=== PATIENT | female | born 1930 | race Caucasian/White ===

== ENCOUNTER 2016-08-17 14:25 | Emergency (ER) | payer MEDICARE ==
--- NOTE | 2016-08-17 15:33 | CT ---
CT FACIAL BONES: Date: 08/17/16 PROVIDED CLINICAL HISTORY: Facial pain status post injury. FINDINGS: There is subtle linear diminished attenuation involving the right mandibular neck suspicious for a n ondisplaced fracture. No additional potential fracture is identified. The paranasal sinuses appear f ree of significant opacity. The globes and other orbital contents appear normal. The visualized intr acranial contents appear unremarkable. Cervical degenerative changes are seen. IMPRESSION: Findings suspicious for a nondisplaced right mandibular neck fracture. POS: MICHEAL
[2016-08-17] MEDS ORDERED: Naproxen 500 MG TAB ONE (15:53)
[2016-08-17] MEDS ORDERED: Acetaminophen/Codeine 30-300mg Tablet ONE (15:53)
== END 2016-08-17 16:05 | disposition home or self-care (01) ==
LOC: MADERS 14:25
DX: S02.609A Fracture of mandible, unspecified, initial encounter for closed fracture (principal); S01.82XA Laceration with foreign body of other part of head, initial encounter; E11.9 Type 2 diabetes mellitus without complications; E78.5 Hyperlipidemia, unspecified; Z79.82 Long term (current) use of aspirin; Z79.899 Other long term (current) drug therapy; W01.0XXA Fall on same level from slipping, tripping and stumbling without subsequent striking against object, initial encounter; Y93.9 Activity, unspecified
CPT/HCPCS: 70486

== ENCOUNTER 2020-06-14 20:40 | Inpatient (IN) | payer MEDICARE ==
[2020-06-14] MEDS ORDERED: Cyclobenzaprine 10 MG TAB PO PRN (23:10)
[2020-06-15] MEDS: Acetaminophen 500 MG TAB PO SCH ×5 (02:38→17:08)
[2020-06-15] MEDS: Ubidecarenone 50 MG CAP PO SCH (08:18)
[2020-06-15] MEDS: Ferrous Sulfate 325 MG TAB PO SCH ×2 (08:18→17:08)
[2020-06-15] MEDS: Rosuvastatin 10 MG TAB PO SCH (08:19)
[2020-06-15] MEDS: Aspirin 81 mg Enteric Coated Tablet PO SCH (08:19)
[2020-06-15] MEDS: Ascorbic Acid 500 mg Chewable Tablet PO SCH ×2 (08:19→21:18)
[2020-06-15] MEDS: Hydrochlorothiazide 25 MG TAB PO SCH (08:19)
[2020-06-15] MEDS: Lisinopril 5 MG TAB PO SCH (08:20)
[2020-06-16] MEDS: Acetaminophen 500 MG TAB PO SCH ×2 (01:00→06:32)
[2020-06-16 05:28] LABS: #Basophils 0.1 thou/uL (0.0-0.2); #Eosinphils 0.2 thou/uL (0.0-0.7); #Lymphocytes 1.2 thou/uL (1.20-3.40); #Monocytes 0.7 thou/uL (0.11-0.59); #Neutrophils 3.4 thou/uL (1.40-6.50); %Basophils 1.5 % (0.0-1.0); %Eosinophils 2.9 % (0.0-10.0); %Lymphocytes 22.3 % (21.0-51.0); %Monocytes 11.8 % (0.0-10.0); %Neutrophils 61.4 % (42.0-75.0); Hemoglobin 8.9 g/dL (12.0-16.0); Mean Corpuscular HGB CONC 34.1 g/dL (32.0-36.0); Mean Corpuscular Hemoglobin 32.3 pg (27.0-31.0); Mean Corpuscular Volume 94.7 fL (78.0-98.0); Mean Platelet Volume 6.3 fL (7.4-10.4); Platelet Count 147 thou/uL (130-400); Red Blood Cell (RBC) Count 2.75 mill/uL (4.20-5.40); White Blood Cell (WBC) Count 5.5 thou/uL (4.8-10.8)
[2020-06-16 05:44] LABS: ALT (SGPT) 14 U/L (8-55); AST (SGOT) 25 U/L (5-34); Albumin 3.4 g/dL (3.4-4.8); Alkaline Phosphatase 47 U/L (40-110); Anion Gap 12 mmol/L (10-20); BUN (Urea Nitrogen) 17 mg/dL (9.8-20.1); Calc. Creatinine Clearance 48 mL/min (70-130); Calcium 9.8 mg/dL (7.8-10.44); Carbon Dioxide 27 mmol/L (23-31); Chloride 107 mmol/L (98-107); Globulin 2.2 g/dL (2.4-3.5); Glucose 168 mg/dL (83-110); Protein, Total 5.6 g/dL (5.8-8.1); Sodium 142 mmol/L (136-145)
--- NOTE | 2020-06-16 05:48 | HP ---
CHIEF COMPLAINT: Fracture and surgical repair of her left femur leaving her weak and unable to walk. HISTORY OF PRESENT ILLNESS: The patient is an 89-year-old white female, who has a history of coronary artery disease and hypertension. She also has diabetes type 2 that has been diet controlled. She lives at home with her and is independent of all her ADLs. She has a daughter that lives in an adjacent home and also is there to assist with her instrumental ADLs. The patient uses a walker sometimes to assist with her ambulation. On the evening of 06/09, the patient was walking towards her back door and tripped and fell hitting on the left knee. She had immediate pain in that left knee and could not get up. Her and daughter could not get her up. 911 was called and they assisted her to bed. She did not want to go to the emergency room. She did not think she was seriously injured. By the morning of 06/10/2020, she could not move that leg and decided that she probably had broke the leg. 911 was called back and she was hospitalized at [facility] after she was evaluated and found to have a fracture of the distal left femur with the proximal fracture overriding the distal fragment. The patient underwent open reduction and internal fixation on 06/10/2020. The patient underwent a Synthes 4.5 mm variable angle LCP curved condylar distal femoral plate with 16 holes. She did very well postop and she is on no weightbearing on that left leg. She has done very well, but is not able to ambulate and just weak following this fall and fracture. She was transferred to [facility] on the evening of 06/14/2020 for purpose of physical therapy and occupational therapy. She is to do no weightbearing on that left leg and she is to follow up with her orthopedic surgeon, Dr. Lynn, in 2 to 3 weeks. The patient was seen early on the morning of 06/15/2020. She was sitting up in a wheelchair with her left leg elevated. She had a long leg knee immobilizer on and an Fredi wrapping on her left leg. She said she was very comfortable and the Tylenol was controlling her pain. The patient was able to review with me what had happened and also her past history. PAST MEDICAL HISTORY: Hospitalized at [facility] from 06/10 to 06/14/2020 for a fall resulting in a left distal femur fracture requiring open reduction and internal fixation on 06/10/2020. The patient has coronary artery disease and underwent a quadruple coronary artery bypass in 2011. The patient has hypertension, hyperlipidemia. She has had a JJ-BSO. Diabetes type 2, diet controlled. PRESENT MEDICINES: 1. Acetaminophen 500 mg two tablets every 6 hours scheduled. 2. Ascorbic acid 500 mg b.i.d. 3. Aspirin 81 mg daily. 4. Coenzyme Q10 at 200 mg daily. 5. Cyclobenzaprine 5 mg t.i.d. as needed. 6. Ferrous sulfate 325 mg b.i.d. 7. Hydrochlorothiazide 12.5 mg daily. 8. Lisinopril 5 mg daily. 9. Metoprolol succinate 25 mg daily. 10. Rosuvastatin 20 mg daily. ALLERGIES: SULFA DRUGS. REVIEW OF SYSTEMS: GENERAL: The patient said prior to her fall, she had been doing fine. She has not had any recent fever. She has not had any change in her weight. EYES, EARS, NOSE, AND THROAT: No complaints. PULMONARY: No shortness of breath or cough. CARDIOVASCULAR: No chest pain. GASTROINTESTINAL: No nausea or vomiting. She has a good appetite. Has had no change in her bowel habits. GENITOURINARY: No complaints. DERMATOLOGIC: No complaints. NEUROPSYCHIATRIC: No complaints. ADLs: The patient is independent of her ADLs. She is continent of urine and stools. She uses a walker to assist with ambulation prior to her fall and fracture of the left leg. HABITS: Alcohol, none. Tobacco, none. SOCIAL HISTORY: Patient is , lives with her . Her daughter lives in an adjacent home and assists her with her instrumental ADLs. PHYSICAL EXAMINATION: GENERAL: Shows a very pleasant 89-year-old white female, who is alert and oriented x3, was able to give a good history of recent events. She is sitting up in a wheelchair with her left leg propped up and with a long leg immobilizer on. VITAL SIGNS: Shows a temperature of 98.6, pulse 70, respirations 18, O2 saturation 97% on room air, blood pressure 122/67. Her weight is 142. HEENT: Head is normocephalic and atraumatic. Eyes, pupils are equal, round, and reactive. Ears, TMs are clear. Nose normal. Mouth and throat are normal. NECK: Carotids are 2+. There are bilateral bruits that can be heard that are transmitted from a murmur in the chest. There is no thyromegaly. LUNGS: Clear. HEART: Regular rate with a grade 3/6 systolic ejection murmur heard at the base of the heart and radiates towards the neck. ABDOMEN: Soft. No organomegaly. No areas of tenderness. EXTREMITIES: Lower extremities, the left leg is in a long-leg knee immobilizer with an Fredi wrap. There is no edema in the foot, ankle of either foot. NEUROLOGIC: The patient is alert and oriented x3 and very aware of her situation presently and leading up to her fall. She has good overall strength, but weak in that left leg from the recent fracture and surgical repair. DERMATOLOGIC: No rash. IMPRESSION: 1. Weakness and gait abnormality. a. Following a fall with fracture of the distal left femur and repair on 06/10/2020. 2. Closed overriding fracture of the distal femoral shaft of the left leg. a. Secondary to a fall on the evening of 06/09/2020. b. Status post open reduction and internal fixation with LCP curved condylar distal femoral plate by Dr. Conner Lynn. c. No weightbearing on that left leg. 3. Coronary artery disease. a. Status post coronary artery bypass x4 in 2011. b. Asymptomatic. 4. Hypertension. 5. Hyperlipidemia. 6. Thrombocytopenia. Platelet count on 06/13 was 96,000 with an H and H of 9.4 and 24.8, and white cell count 6800. 7. Diabetes mellitus that is diet controlled. PLAN: While patient was hospitalized at [facility], she had a SARS-CoV-2, rapid RNA, but none was detected on 06/10/2020. The patient will be placed on her usual medications. We will follow her CBC so that her blood count and platelets can be observed. The patient will have evaluation by PT and OT. She will be nonweightbearing on that left leg. The Tylenol seems to be handling her pain just fine. She is due to see Dr. Lynn in followup in 2 to 3 weeks. CODE STATUS: Full. Job ID: [id number] [facility]
[2020-06-16] MEDS: Ascorbic Acid 500 mg Chewable Tablet PO SCH ×2 (08:46→20:45)
[2020-06-16] MEDS: Aspirin 81 mg Enteric Coated Tablet PO SCH (08:47)
[2020-06-16] MEDS: Hydrochlorothiazide 25 MG TAB PO SCH (08:47)
[2020-06-16] MEDS: Ferrous Sulfate 325 MG TAB PO SCH ×2 (08:47→16:04)
[2020-06-16] MEDS: Lisinopril 5 MG TAB PO SCH (08:48)
[2020-06-16] MEDS: Rosuvastatin 10 MG TAB PO SCH (08:53)
[2020-06-16] MEDS: Ubidecarenone 50 MG CAP PO SCH (08:53)
[2020-06-16 11:23] LABS: Hemoglobin A1c 6.1 % (4.0-6.0)
--- NOTE | 2020-06-16 14:25 | PRG ---
DATE OF SERVICE: 06/16/2020 SUBJECTIVE: The patient said she had a good night. Her pain is well controlled. She does not think she needs Tylenol scheduled. She said she would just ask for it when needed. OBJECTIVE: GENERAL: The patient is sitting up in a wheelchair with her left leg elevated. She looks very comfortable, in no distress. VITAL SIGNS: Her temp is 98.6, pulse 68, respirations 16, O2 saturation 99% on room air, blood pressure 119/62. LUNGS: Clear. HEART: Regular rate with a grade 3/6 systolic ejection murmur heard best at the base of the heart extending to the neck. EXTREMITIES: The left leg is in a long-leg knee immobilizer, and there is a dressing on the leg. There is no edema. ASSESSMENT: 1. Weakness and gait abnormality. a. Following a fall with fracture of the distal left femur and repair on 06/10/2020. b. Doing very well. Pain well controlled. 2. Closed overriding fracture of the distal femoral shaft, left leg. a. Secondary to mechanical fall on the evening of 06/09/2020. b. Status post open reduction and internal fixation with an LCP curved condylar distal femoral plate by Conner Lynn MD, on 06/09/2020. c. No weightbearing on that leg. 3. Coronary artery disease. a. Status post coronary artery bypass x4, 2011. b. Asymptomatic. 4. Hypertension. 5. Hyperlipidemia. 6. Thrombocytopenia. Platelet count on 06/13 was 96,000, H and H 9.4 and 24.9, white cell count 6800. 7. Diabetes type 2 that is diet controlled. PLAN: The patient is doing very well. PT and OT will continue working with her. She will see her orthopedic surgeon in followup in 2 to 3 weeks. Her lab this morning showed an H and H of 8.9 and 26.1 with a platelet count of up to 147,000. Her sodium is 142, potassium 4.0, FBS 168. Hemoglobin A1c pending. Job ID: [id number] MTDD
[2020-06-16] MEDS: Acetaminophen 500 MG TAB PO PRN ×2 (16:03→22:53)
[2020-06-16] MEDS: Polyethylene Glycol 3350 17 GM Packet PO PRN (16:04)
[2020-06-17] MEDS: Ferrous Sulfate 325 MG TAB PO SCH ×2 (08:54→17:13)
[2020-06-17] MEDS: Rosuvastatin 10 MG TAB PO SCH (08:54)
[2020-06-17] MEDS: Lisinopril 5 MG TAB PO SCH (08:54)
[2020-06-17] MEDS: Ascorbic Acid 500 mg Chewable Tablet PO SCH ×2 (08:54→20:30)
[2020-06-17] MEDS: Aspirin 81 mg Enteric Coated Tablet PO SCH (08:56)
[2020-06-17] MEDS: Hydrochlorothiazide 25 MG TAB PO SCH (08:56)
[2020-06-17] MEDS: Ubidecarenone 50 MG CAP PO SCH (08:57)
[2020-06-17] MEDS: Polyethylene Glycol 3350 17 GM Packet PO PRN (09:02)
[2020-06-17] MEDS: Acetaminophen 500 MG TAB PO PRN (20:33)
[2020-06-17] MEDS: Calcium Carbonate 500 MG ChewTAB PO PRN (20:34)
--- NOTE | 2020-06-18 04:38 | PRG ---
DATE OF SERVICE: 06/17/2020 SUBJECTIVE: The patient says she is feeling real good. She is up in her room, sitting in a wheelchair with her left leg elevated. She is visiting with her daughter, Mell. The patient said her pain is well controlled and she is not having any trouble. OBJECTIVE: GENERAL: The patient is alert, appears comfortable, in no distress. VITAL SIGNS: Show a temperature of 97.7, pulse 76, respirations 16, O2 saturation 97% on room air, and blood pressure 122/67. LUNGS: Clear. HEART: Regular rate. EXTREMITIES: The patient is wearing a long leg knee immobilizer on the left leg. There is no edema in the lower leg or feet. LABORATORY DATA: FBS this morning was 164. Hemoglobin A1c 6.1. ASSESSMENT: 1. Weakness and gait abnormality: a. Following a fall with fracture of the distal left femur and repair on 06/10/2020. b. Doing very well, pain well controlled as of 06/17/2020. 2. Closed overriding fracture of the distal femoral shaft of the left leg: a. Secondary to mechanical fall on the evening of 06/09/2020. b. Status post open reduction and internal fixation with an LCP curved condylar distal femoral plate by Dr. Toan Lynn on 06/09/2020. c. No weightbearing on the left leg. 3. Coronary artery disease: a. Status post coronary artery bypass x4 in 2011. b. Asymptomatic. 4. Hypertension, controlled. 5. Hyperlipidemia. 6. Thrombocytopenia: a. Resolving, platelet count up to 147,000. 7. Diabetes, type 2: a. Well controlled with hemoglobin A1c of 6.1. b. Controlled with diet alone. PLAN: The patient is doing very well. We will continue her present care. Continue PT and OT. Job ID: [id number]
[2020-06-18] MEDS: Ubidecarenone 50 MG CAP PO SCH (08:20)
[2020-06-18] MEDS: Ferrous Sulfate 325 MG TAB PO SCH ×2 (08:20→17:09)
[2020-06-18] MEDS: Aspirin 81 mg Enteric Coated Tablet PO SCH (08:21)
[2020-06-18] MEDS: Ascorbic Acid 500 mg Chewable Tablet PO SCH ×2 (08:21→20:22)
[2020-06-18] MEDS: Hydrochlorothiazide 25 MG TAB PO SCH (08:21)
[2020-06-18] MEDS: Lisinopril 5 MG TAB PO SCH (08:21)
[2020-06-18] MEDS: Rosuvastatin 10 MG TAB PO SCH (08:26)
[2020-06-18] MEDS: Acetaminophen 500 MG TAB PO PRN (20:55)
[2020-06-19] MEDS: Ascorbic Acid 500 mg Chewable Tablet PO SCH ×2 (07:59→21:05)
[2020-06-19] MEDS: Lisinopril 5 MG TAB PO SCH (07:59)
[2020-06-19] MEDS: Rosuvastatin 10 MG TAB PO SCH (07:59)
[2020-06-19] MEDS: Ferrous Sulfate 325 MG TAB PO SCH ×2 (07:59→16:44)
[2020-06-19] MEDS: Ubidecarenone 50 MG CAP PO SCH (07:59)
[2020-06-19] MEDS: Aspirin 81 mg Enteric Coated Tablet PO SCH (08:00)
[2020-06-19] MEDS: Hydrochlorothiazide 25 MG TAB PO SCH (08:00)
--- NOTE | 2020-06-19 12:41 | PRG ---
DATE OF SERVICE: 06/19/2020 SUBJECTIVE: The patient said she is feeling good this morning. Her leg is feeling good. She did not have any complaints. OBJECTIVE: GENERAL: The patient is sitting up in a chair, eating her breakfast. She is alert, appears very comfortable. VITAL SIGNS: Temp 98.9, pulse 77, respirations 19, O2 saturation 97% on room air, and blood pressure 104/57. LUNGS: Clear. HEART: Regular rate. EXTREMITIES: No edema. LABORATORY DATA: Her FBS this morning was 191. Blood sugars have been running each morning around 160s. ASSESSMENT: 1. Weakness and gait abnormality. a. Following a fall with fracture of the distal left femur and repair on 06/10/2020. b. Doing very well. Pain well controlled as of 06/19. 2. Closed overriding fracture of the distal femoral shaft of the left leg. a. Secondary to mechanical fall on the evening of 06/09/2020. b. Status post open reduction and internal fixation with LCP curved condylar distal femoral plate by Dr. Lynn on 06/09/2020. c. No weightbearing on the left leg. d. Doing very well as of 06/19. 3. Coronary artery disease. a. Status post coronary artery bypass x4 in 2011. b. Asymptomatic. 4. Hypertension, controlled. 5. Hyperlipidemia. 6. Thrombocytopenia, resolving. Recent platelet count 147,000. 7. Diabetes, type 2. a. Hemoglobin A1c 6.1. b. Fasting blood sugars running 160 to 190. PLAN: Continue present care. Continue PT. We will place the patient on metformin 500 mg daily at supper. Job ID: [id number]
[2020-06-19] MEDS: metFORMIN 500 MG TAB PO SCH (16:45)
[2020-06-19] MEDS: Acetaminophen 500 MG TAB PO PRN (21:04)
[2020-06-20] MEDS: Hydrochlorothiazide 25 MG TAB PO SCH (08:35)
[2020-06-20] MEDS: Ferrous Sulfate 325 MG TAB PO SCH ×2 (08:35→17:19)
[2020-06-20] MEDS: Rosuvastatin 10 MG TAB PO SCH (08:35)
[2020-06-20] MEDS: Ubidecarenone 50 MG CAP PO SCH (08:35)
[2020-06-20] MEDS: Lisinopril 5 MG TAB PO SCH (08:35)
[2020-06-20] MEDS: Ascorbic Acid 500 mg Chewable Tablet PO SCH ×2 (08:35→20:42)
[2020-06-20] MEDS: Aspirin 81 mg Enteric Coated Tablet PO SCH (08:35)
[2020-06-20] MEDS: Acetaminophen 500 MG TAB PO PRN (15:54)
[2020-06-20] MEDS: metFORMIN 500 MG TAB PO SCH (17:19)
[2020-06-21] MEDS: Acetaminophen 500 MG TAB PO PRN ×3 (03:59→17:25)
--- NOTE | 2020-06-21 04:54 | PRG ---
DATE OF SERVICE: 06/20/2020 SUBJECTIVE: The patient is sitting up in a wheelchair in the room with the left leg elevated and wearing her long-leg knee immobilizer. She looks very comfortable. She is talkative and said she had had a good day. She is working with Physical Therapy and learning to help transfer and pivoting on her good right leg. OBJECTIVE: GENERAL: The patient is alert, appears comfortable, in no distress. VITAL SIGNS: Her temperature 98, pulse 70, respirations 18, O2 saturation 99% on room air, and blood pressure 114/65. Her FBS this morning was 166. LUNGS: Clear. HEART: Regular rate. EXTREMITIES: Lower extremities, there is no swelling around the ankles or the feet. Left leg is in the long-leg knee immobilizer. ASSESSMENT: 1. Weakness and gait abnormality. a. Following a fall and fracture of the distal left femur and repair on 06/10/2020. b. Doing very well. Pain well controlled as of 06/20. 2. Closed overriding fracture of the distal femoral shaft of the left leg. a. Secondary to mechanical fall on the evening of 06/09/2020. b. Status post open reduction and internal fixation with an LCP curved condylar distal femoral plate by Dr. Lynn on 06/10/2020. c. No weightbearing on the left leg. d. Doing well as of 06/20. 3. Coronary artery disease. a. Status post coronary artery bypass x4 in 2011. b. Asymptomatic. 4. Hypertension, controlled. 5. Hyperlipidemia. 6. Thrombocytopenia, resolved. 7. Diabetes type 2. a. Hemoglobin A1c 6.1. b. FBS running a little high. She was started on metformin on 06/19/2020. PLAN: Continue present care. Continue PT and OT. Job ID: [id number]
[2020-06-21] MEDS: Ubidecarenone 50 MG CAP PO SCH (08:18)
[2020-06-21] MEDS: Hydrochlorothiazide 25 MG TAB PO SCH (08:19)
[2020-06-21] MEDS: Lisinopril 5 MG TAB PO SCH (08:20)
[2020-06-21] MEDS: Ferrous Sulfate 325 MG TAB PO SCH ×2 (08:20→17:25)
[2020-06-21] MEDS: Rosuvastatin 10 MG TAB PO SCH (08:20)
[2020-06-21] MEDS: Ascorbic Acid 500 mg Chewable Tablet PO SCH ×2 (08:20→20:12)
[2020-06-21] MEDS: Aspirin 81 mg Enteric Coated Tablet PO SCH (08:20)
[2020-06-21] MEDS: metFORMIN 500 MG TAB PO SCH (17:25)
--- NOTE | 2020-06-22 05:18 | PRG ---
DATE OF SERVICE: 06/21/2020 SUBJECTIVE: Patient thinks she is doing good. She had no complaint. She said she is working with Physical Therapy, learning how to walk without weightbearing on the left. Said she is due to see her orthopedic surgeon tomorrow. OBJECTIVE: GENERAL: The patient is sitting in a wheelchair. She is alert, talkative, and appears very comfortable, in no distress. VITAL SINGS: Temperature 98.9, pulse rate 74, respirations are 18, O2 saturation 97% on room air, and blood pressure 114/63. LUNGS: Clear. HEART: Regular rate. EXTREMITIES: No edema. LABORATORY DATA: FBS this morning, pending. ASSESSMENT: 1. Weakness and gait abnormality. a. Following a fall and fracture of the distal left femur and repair on 06/10/2020. b. Doing very well. Pain well controlled as of 06/21/2020. 2. Closed overriding fracture of the distal femoral shaft of the left leg. a. Secondary to a mechanical fall the evening of 06/09/2020. b. Status post ORIF with LCP curved condylar distal femoral plate by Dr. Lynn on 06/10/2020. c. No weightbearing on the left leg. d. Doing very well as of 06/21/2020. 3. Coronary artery disease. a. Status post coronary artery bypass x4 in 2011. b. Asymptomatic. 4. Hypertension, controlled. 5. Hyperlipidemia. 6. Thrombocytopenia, resolved. 7. Diabetes type 2. a. Hemoglobin A1c 6.1. PLAN: Continue present care. Continue PT and OT. The patient is scheduled to see her orthopedic surgeon tomorrow. Job ID: [id number]
[2020-06-22] MEDS: Ferrous Sulfate 325 MG TAB PO SCH ×2 (07:40→17:06)
[2020-06-22] MEDS: Aspirin 81 mg Enteric Coated Tablet PO SCH (07:42)
[2020-06-22] MEDS: Ubidecarenone 50 MG CAP PO SCH (07:42)
[2020-06-22] MEDS: Rosuvastatin 10 MG TAB PO SCH (07:42)
[2020-06-22] MEDS: Ascorbic Acid 500 mg Chewable Tablet PO SCH ×2 (07:43→20:29)
[2020-06-22] MEDS: Lisinopril 5 MG TAB PO SCH (07:43)
[2020-06-22] MEDS: Hydrochlorothiazide 25 MG TAB PO SCH (07:43)
[2020-06-22] MEDS: Acetaminophen 500 MG TAB PO PRN ×2 (07:43→20:29)
[2020-06-22] MEDS: metFORMIN 500 MG TAB PO SCH (17:06)
--- NOTE | 2020-06-23 05:08 | PRG ---
DATE OF SERVICE: 06/22/2020 SUBJECTIVE: The patient thinks she is doing well. She is doing well with physical therapy. She is due to see her orthopedic surgeon today, Dr. Lynn. She says she in the afternoon notices a little pain over her right cheek. She takes Tylenol, it goes away. She has had a little intermittent clear nasal drainage, but there has been no discoloration. No fever. OBJECTIVE: GENERAL: The patient is alert, appears in no distress. VITAL SIGNS: Her temperature is 98.6, pulse 82, respirations 16, O2 saturation 98% on room air, and blood pressure 102/51. HEENT: Face; there is no nasal congestion. There is no significant pain over the right maxillary sinus. LUNGS: Clear. HEART: Regular rate. EXTREMITIES: Lower extremities, no edema. ASSESSMENT: 1. Weakness and gait abnormality. a. Following a fall and fracture of the distal left femur and requiring repair on 06/10/2020. b. Doing very well. Pain well controlled as of 06/22/2020. 2. Closed overriding fracture of the distal femoral shaft of the left leg. a. Secondary to a mechanical fall on 06/09/2020. b. Status post open reduction and internal fixation by Dr. Lynn on 06/10/2020. c. No weightbearing on the left leg. d. Doing very well as of 06/22. 3. Coronary artery bypass. a. Status post coronary artery bypass x4 in 2011. b. Asymptomatic. 4. Hypertension, controlled. 5. Hyperlipidemia. 6. Thrombocytopenia, resolved. 7. Diabetes, type 2. a. Hemoglobin A1c 6.1. PLAN: Continue present care. Continue PT and OT. The patient is scheduled to see Dr. Lynn, orthopedic surgeon today. Right now, this intermittent pain in the right cheek area is managed with Tylenol. We will just observe this and see how she does. Job ID: [id number]
[2020-06-23 06:06] LABS: #Basophils 0.1 thou/uL (0.0-0.2); #Eosinphils 0.1 thou/uL (0.0-0.7); #Lymphocytes 1.2 thou/uL (1.20-3.40); #Monocytes 0.6 thou/uL (0.11-0.59); #Neutrophils 3.9 thou/uL (1.40-6.50); %Basophils 1.2 % (0.0-1.0); %Eosinophils 2.1 % (0.0-10.0); %Lymphocytes 19.8 % (21.0-51.0); %Neutrophils 66.9 % (42.0-75.0); Anion Gap 13 mmol/L (10-20); BUN (Urea Nitrogen) 18 mg/dL (9.8-20.1); Calc. Creatinine Clearance 52 mL/min (70-130); Calcium 9.7 mg/dL (7.8-10.44); Carbon Dioxide 26 mmol/L (23-31); Chloride 105 mmol/L (98-107); Glucose 152 mg/dL (83-110); Hemoglobin 9.5 g/dL (12.0-16.0); Mean Corpuscular HGB CONC 33.5 g/dL (32.0-36.0); Mean Corpuscular Hemoglobin 32.3 pg (27.0-31.0); Mean Corpuscular Volume 96.4 fL (78.0-98.0); Mean Platelet Volume 5.9 fL (7.4-10.4); Platelet Count 244 thou/uL (130-400); Potassium 3.9 mmol/L (3.5-5.1); RBC Distribution Width 12.9 % (11.5-14.5); Red Blood Cell (RBC) Count 2.94 mill/uL (4.20-5.40); Sodium 140 mmol/L (136-145); White Blood Cell (WBC) Count 5.9 thou/uL (4.8-10.8)
[2020-06-23] MEDS: Ferrous Sulfate 325 MG TAB PO SCH ×2 (08:03→17:38)
[2020-06-23] MEDS: Aspirin 81 mg Enteric Coated Tablet PO SCH (08:03)
[2020-06-23] MEDS: Rosuvastatin 10 MG TAB PO SCH (08:03)
[2020-06-23] MEDS: Hydrochlorothiazide 25 MG TAB PO SCH (08:03)
[2020-06-23] MEDS: Ascorbic Acid 500 mg Chewable Tablet PO SCH ×2 (08:03→20:33)
[2020-06-23] MEDS: Lisinopril 5 MG TAB PO SCH (08:03)
[2020-06-23] MEDS: Ubidecarenone 50 MG CAP PO SCH (08:04)
[2020-06-23] MEDS: Acetaminophen 500 MG TAB PO PRN ×2 (14:20→20:32)
[2020-06-23] MEDS: metFORMIN 500 MG TAB PO SCH (17:38)
--- NOTE | 2020-06-24 07:52 | PRG ---
DATE OF SERVICE: 06/23/2020 SUBJECTIVE: The patient is sitting up in a wheelchair with her left leg elevated with her daughter visiting. The patient said she is feeling good this morning. The little intermittent pain over the right facial area is better. The patient went to see the orthopedic surgeon yesterday and saw Dr. Cabrera, an associate of Dr. Lynn. He was pleased with her progress, removed the skin logan and said that she may take the long leg knee immobilizer off at nighttime when she is in bed, but it needs to stay on when she is up out of bed. She still needs to stay at nonweightbearing on the left leg at least for 6 weeks postop. OBJECTIVE: GENERAL: The patient looks very comfortable, in no distress. VITAL SIGNS: Her temperature is 98.5, pulse 69, respirations 16, O2 saturation 99%, blood pressure 116/66. LUNGS: Clear. HEART: Regular rate. EXTREMITIES: No edema. LABORATORY DATA: Her H and H are up to 9.5 and 28.3, white cell count 5900 with 67% segs, 20% lymphocytes, and platelet count of 244,000. Sodium 140, potassium 3.9, BUN 18, creatinine 0.76, glucose 152. ASSESSMENT: 1. Weakness and gait abnormality. a. Following a fall and fracture of the distal left femur requiring open reduction and internal fixation on 06/10/2020. b. Doing well. Pain well controlled as of 06/23. 2. Closed overriding fracture of the distal left femoral shaft. a. Secondary to a mechanical fall on 06/09/2020. b. Status post open reduction and internal fixation by Dr. Lynn on 06/10/2020. c. Remains no weightbearing on the left leg for first six weeks postop. d. Doing very well as of 06/23. [place] removed by her orthopedic surgeon on 06/22. 3. Coronary artery disease. a. Status post coronary artery bypass x4 in 2011. b. Asymptomatic. 4. Hypertension. 5. Hyperlipidemia. 6. Thrombocytopenia, resolved. Platelet count 244,000 as of 06/23/2020. 7. Diabetes type 2. a. Hemoglobin A1c 6.1. PLAN: Continue present care. Continue PT and OT. Continue nonweightbearing on the left leg. Job ID: [id number]
[2020-06-24] MEDS: Hydrochlorothiazide 25 MG TAB PO SCH (08:39)
[2020-06-24] MEDS: Ubidecarenone 50 MG CAP PO SCH (08:39)
[2020-06-24] MEDS: Rosuvastatin 10 MG TAB PO SCH (08:39)
[2020-06-24] MEDS: Aspirin 81 mg Enteric Coated Tablet PO SCH (08:40)
[2020-06-24] MEDS: Lisinopril 5 MG TAB PO SCH (08:40)
[2020-06-24] MEDS: Ferrous Sulfate 325 MG TAB PO SCH ×2 (08:40→16:57)
[2020-06-24] MEDS: Ascorbic Acid 500 mg Chewable Tablet PO SCH ×2 (08:40→20:15)
[2020-06-24] MEDS: Acetaminophen 500 MG TAB PO PRN ×2 (13:18→20:16)
[2020-06-24] MEDS: metFORMIN 500 MG TAB PO SCH (16:57)
[2020-06-25] MEDS: Ubidecarenone 50 MG CAP PO SCH (08:10)
[2020-06-25] MEDS: Ferrous Sulfate 325 MG TAB PO SCH ×2 (08:10→17:41)
[2020-06-25] MEDS: Ascorbic Acid 500 mg Chewable Tablet PO SCH ×2 (08:10→20:02)
[2020-06-25] MEDS: Hydrochlorothiazide 25 MG TAB PO SCH (08:11)
[2020-06-25] MEDS: Aspirin 81 mg Enteric Coated Tablet PO SCH (08:11)
[2020-06-25] MEDS: Lisinopril 5 MG TAB PO SCH (08:11)
[2020-06-25] MEDS: Rosuvastatin 10 MG TAB PO SCH (08:12)
[2020-06-25] MEDS: Acetaminophen 500 MG TAB PO PRN ×3 (13:22→20:04)
[2020-06-25] MEDS: metFORMIN 500 MG TAB PO SCH (17:41)
--- NOTE | 2020-06-25 17:45 | PRG ---
DATE OF SERVICE: 06/25/2020 SUBJECTIVE: The patient says she is doing good. She said it felt good when she is in bed at night to leave the immobilizer off as instructed by her orthopedic surgeon that she could do, has to be worn when she is up. She still is at no weightbearing on the left leg for at least 6 weeks postop. OBJECTIVE: GENERAL: The patient is alert and talkative, appears comfortable, in no distress. VITAL SIGNS: Her temp is 98.7, pulse 68, respirations 18, O2 saturation 96% on room air, blood pressure 101/59. LUNGS: Clear. HEART: Regular rate. EXTREMITIES: No edema. ASSESSMENT: 1. Weakness and gait abnormality. a. Following a fall and fracture of the distal left femur, requiring open reduction and internal fixation on 05/31/2020. b. Doing well. Pain well controlled as of 06/25. 2. Closed overriding fracture of the distal left femoral shaft. a. Secondary to a mechanical fall on 06/09/2020. b. Status post open reduction and internal fixation by Dr. Lynn on 06/10/2020. c. Remains no weightbearing on the left leg for at least 6 weeks postop. Allowed to remain out of the immobilizer when in bed at night. d. Doing very well as of 06/25. [place] were removed by orthopedic surgeon on 06/22. 3. Coronary artery disease. a. Status post coronary artery bypass x4 in 2011. b. Asymptomatic. 4. Hypertension. 5. Hyperlipidemia. 6. Thrombocytopenia, resolved, Platelet count 244,000 on 06/23/2020. 7. Diabetes, type 2. a. Hemoglobin A1c 6.1. FBS 146. PLAN: Continue present care. Continue PT and OT. Job ID: [id number]
[2020-06-25] MEDS: Calcium Carbonate 500 MG ChewTAB PO PRN (22:27)
[2020-06-26] MEDS: Rosuvastatin 10 MG TAB PO SCH (08:38)
[2020-06-26] MEDS: Ferrous Sulfate 325 MG TAB PO SCH ×2 (08:38→17:09)
[2020-06-26] MEDS: Aspirin 81 mg Enteric Coated Tablet PO SCH (08:38)
[2020-06-26] MEDS: Lisinopril 5 MG TAB PO SCH (08:38)
[2020-06-26] MEDS: Ascorbic Acid 500 mg Chewable Tablet PO SCH ×2 (08:38→20:24)
[2020-06-26] MEDS: Ubidecarenone 50 MG CAP PO SCH (08:38)
[2020-06-26] MEDS: Hydrochlorothiazide 25 MG TAB PO SCH (08:38)
[2020-06-26] MEDS: Acetaminophen 500 MG TAB PO PRN ×3 (08:56→20:24)
--- NOTE | 2020-06-26 10:14 | PRG ---
DATE OF SERVICE: 06/26/2020 SUBJECTIVE: The patient thinks she is doing pretty good. She said she had a good night. Her leg feels pretty good. She is around in Physical Therapy Department, sitting in a wheelchair. OBJECTIVE: GENERAL: The patient is alert, appears in no distress. VITAL SIGNS: Her temperature is 98, pulse 73, respirations 16, O2 saturation 99% on room air, blood pressure 145/64. LUNGS: Clear. HEART: Regular rate with grade 3/6 systolic ejection murmur heard at the base of the heart, radiates towards the neck. EXTREMITIES: There is no edema of the left leg. There is incision on the lateral distant half of the upper leg that is well healed. There is smaller incision more proximally. There is bruising around the knee and lower leg. LABORATORY DATA: Shows an H and H of 9.5 and 28.3 on 06/23. FBS this morning 144. ASSESSMENT: 1. Weakness and gait abnormality. a. Following a fall and fracture of the distal left femur, requiring open reduction and internal fixation on 06/10/2020. b. Doing well. Pain well controlled. No weightbearing on the left leg. 2. Closed overriding fracture of the distal left femoral shaft. a. Secondary to mechanical fall on 06/09/2020. b. Status post open reduction and internal fixation by Dr. Lynn on 06/10/2020. c. Remains no weightbearing on the left leg for six weeks minimum postop. 3. Coronary artery disease. a. Status post coronary artery bypass x4 in 2011. b. Asymptomatic. 4. Hypertension. 5. Thrombocytopenia, resolved. Platelet count 244,000 on 06/23/2020. 6. Diabetes type 2. a. Hemoglobin A1c 6.1. FBS 144 on 06/26/2020. PLAN: The patient has gradual improvement. We will continue present care. Continue PT and OT. Job ID: [id number]
[2020-06-26] MEDS: metFORMIN 500 MG TAB PO SCH (17:09)
[2020-06-26] MEDS: Calcium Carbonate 500 MG ChewTAB PO PRN (20:27)
[2020-06-27] MEDS: Ascorbic Acid 500 mg Chewable Tablet PO SCH ×2 (08:10→20:23)
[2020-06-27] MEDS: Rosuvastatin 10 MG TAB PO SCH (08:10)
[2020-06-27] MEDS: Aspirin 81 mg Enteric Coated Tablet PO SCH (08:10)
[2020-06-27] MEDS: Ferrous Sulfate 325 MG TAB PO SCH ×2 (08:10→16:57)
[2020-06-27] MEDS: Fluticasone Propionate Nasal Spray 16 gm Bottle NASAL SCH (08:10)
[2020-06-27] MEDS: Lisinopril 5 MG TAB PO SCH (08:11)
[2020-06-27] MEDS: Ubidecarenone 50 MG CAP PO SCH (08:11)
[2020-06-27] MEDS: Hydrochlorothiazide 25 MG TAB PO SCH (08:11)
[2020-06-27] MEDS: Acetaminophen 500 MG TAB PO PRN ×2 (08:15→20:26)
[2020-06-27] MEDS: AMOXicillin 250 MG CAP PO SCH ×3 (08:30→20:23)
--- NOTE | 2020-06-27 09:20 | PRG ---
DATE OF SERVICE: 06/27/2020 SUBJECTIVE: The patient says she feels a lot better today. Yesterday, she had a lot of pain in that right facial area. At home, she uses Flonase and this was restarted and she used this morning, she blew a lot of thick yellowish mucoid drainage from the right nostril. OBJECTIVE: GENERAL: The patient is alert, appears in no distress. VITAL SIGNS: Shows temperature of 98.1, pulse 70, respirations 16, O2 saturation 98% on room air, blood pressure 115/61. FACE: The patient is tender to palpation over the right maxillary sinus. LUNGS: Clear. HEART: Regular rate. EXTREMITIES: No edema. LABORATORY: Her FBS this morning was 164. ASSESSMENT: 1. Weakness and gait abnormality. a. Following a fall and fracture of the distal left femur requiring ORIF on 06/10/2020. b. Doing well. Pain well controlled. Still remains no weightbearing on the left leg. 2. Closed overriding fracture of the distal left femoral shaft. a. Secondary to mechanical fall on 06/09/2020. b. Status post ORIF by Dr. Lynn on 06/10/2020. c. She remains at no weightbearing for a minimum of 6 weeks postop. 3. Coronary artery disease. a. Status post coronary artery bypass x4 in 2011. b. Asymptomatic. 4. Hypertension. 5. Thrombocytopenia, resolved. Platelet count 244,000, on 06/23/2020. 6. Diabetes type 2. a. Hemoglobin A1c 6.1. 7. Right maxillary sinusitis. PLAN: Continue present care. Continue PT and OT. Continue the Flonase. Amoxicillin 500 mg t.i.d. x10 days. Job ID: [id number]
[2020-06-27] MEDS: metFORMIN 500 MG TAB PO SCH (16:57)
[2020-06-28] MEDS: Ubidecarenone 50 MG CAP PO SCH (08:21)
[2020-06-28] MEDS: Rosuvastatin 10 MG TAB PO SCH (08:21)
[2020-06-28] MEDS: Acetaminophen 500 MG TAB PO PRN ×3 (08:21→21:04)
[2020-06-28] MEDS: Lisinopril 5 MG TAB PO SCH (08:22)
[2020-06-28] MEDS: Ascorbic Acid 500 mg Chewable Tablet PO SCH ×2 (08:22→20:04)
[2020-06-28] MEDS: Fluticasone Propionate Nasal Spray 16 gm Bottle NASAL SCH (08:24)
[2020-06-28] MEDS: Aspirin 81 mg Enteric Coated Tablet PO SCH (08:24)
[2020-06-28] MEDS: Ferrous Sulfate 325 MG TAB PO SCH ×2 (08:24→17:06)
[2020-06-28] MEDS: Hydrochlorothiazide 25 MG TAB PO SCH (08:24)
[2020-06-28] MEDS: AMOXicillin 250 MG CAP PO SCH ×3 (08:24→20:03)
--- NOTE | 2020-06-28 09:54 | PRG ---
DATE OF SERVICE: 06/28/2020 SUBJECTIVE: The patient says she feels a lot better today. She is not having any more of that right facial pain over the cheek. She is not blowing the thick yellow mucus out of her nose. Her leg, she thinks is doing better, and therapy is going well. OBJECTIVE: GENERAL: The patient is sitting up in a chair, is alert and talkative, appears very comfortable, and in no distress. VITAL SIGNS: Her temperature is 98.2, pulse 65, respirations 16, O2 saturation 100% on room air, blood pressure 122/65. LUNGS: Clear. HEART: Regular rate. EXTREMITIES: No edema. ASSESSMENT: 1. Weakness and gait abnormality. a. Following a fall and fracture of the distal left femur, requiring open reduction and internal fixation on 06/10/2020. b. Doing well. Pain well controlled. She remains on no weightbearing on the left leg. 2. Closed, overriding fracture of the distal left femoral shaft. a. Secondary to mechanical fall on 06/09/2020. b. Status post open reduction and internal fixation by Dr. Lynn on 06/10/2020. c. Remains at no weightbearing on the left leg for minimum of 6 weeks postop. 3. Coronary artery disease. a. Status post coronary artery bypass x4 in 2011. b. Asymptomatic. 4. Hypertension. 5. Thrombocytopenia, resolved, platelet count 244,000 on 06/23/2020. 6. Diabetes type 2. a. Hemoglobin A1c 6.1. b. FBS was 164 as of 06/28/2020. 7. Right maxillary sinusitis. a. Marked improvement as of 06/28/2020. PLAN: Continue present care. Continue PT and OT. Job ID: [id number]
[2020-06-28] MEDS: metFORMIN 500 MG TAB PO SCH (17:06)
[2020-06-28] MEDS: Calcium Carbonate 500 MG ChewTAB PO PRN (20:04)
[2020-06-29] MEDS: Aspirin 81 mg Enteric Coated Tablet PO SCH (08:04)
[2020-06-29] MEDS: Rosuvastatin 10 MG TAB PO SCH (08:04)
[2020-06-29] MEDS: Lisinopril 5 MG TAB PO SCH (08:05)
[2020-06-29] MEDS: Hydrochlorothiazide 25 MG TAB PO SCH (08:05)
[2020-06-29] MEDS: Acetaminophen 500 MG TAB PO PRN ×3 (08:06→21:31)
[2020-06-29] MEDS: Ubidecarenone 50 MG CAP PO SCH (08:06)
[2020-06-29] MEDS: AMOXicillin 250 MG CAP PO SCH ×3 (08:06→20:38)
[2020-06-29] MEDS: Ascorbic Acid 500 mg Chewable Tablet PO SCH ×2 (08:06→20:37)
[2020-06-29] MEDS: Ferrous Sulfate 325 MG TAB PO SCH ×2 (08:07→16:51)
[2020-06-29] MEDS: Fluticasone Propionate Nasal Spray 16 gm Bottle NASAL SCH (08:09)
--- NOTE | 2020-06-29 10:07 | PRG ---
DATE OF SERVICE: 06/29/2020 SUBJECTIVE: The patient said that she is doing good today. Her right face feels better, still has just a little soreness there, but nothing like it had been. She thinks this is much improved. OBJECTIVE: GENERAL: The patient is alert, appears in no distress. VITAL SIGNS: Her temperature 98.9, pulse 73, respirations 17, O2 saturation 97% on room air, and blood pressure 100/52. LUNGS: Clear. HEART: Regular rate. EXTREMITIES: No edema. ASSESSMENT: 1. Weakness, gait abnormality. a. Following a fall and fracture of the distal left femur and open reduction and internal fixation on 06/10/2020. b. Doing better. Pain controlled. Remains on no weightbearing on the left. 2. Closed, overriding fracture of the distal left femoral shaft. a. Secondary to mechanical fall on 06/09/2020. b. Status post open reduction and internal fixation by Dr. Lynn on 06/10/2020. c. Remains at no weightbearing on the left leg for minimum of 6 weeks postop. 3. Coronary artery disease. a. Status post coronary artery bypass x4 in 2011. b. Asymptomatic. 4. Hypertension. 5. Thrombocytopenia, resolved, platelet count 244,000 on 06/23/2020. 6. Diabetes type 2. Hemoglobin A1c 6.1. 7. Right maxillary sinusitis. a. Continued improvement as of 06/29/2020. PLAN: Continue present care. Continue PT and OT. The patient has been notified by insurance that their last day of coverage will be on 07/01/2020. The patient is making arrangement at home. Will have Home Health and also her daughter will be assisting. Job ID: [id number]
[2020-06-29] MEDS: metFORMIN 500 MG TAB PO SCH (16:51)
[2020-06-29] MEDS: Calcium Carbonate 500 MG ChewTAB PO PRN (20:38)
[2020-06-30 05:59] LABS: #Eosinphils 0.1 thou/uL (0.0-0.7); #Lymphocytes 1.2 thou/uL (1.20-3.40); #Monocytes 0.5 thou/uL (0.11-0.59); #Neutrophils 1.9 thou/uL (1.40-6.50); %Basophils 1.2 % (0.0-1.0); %Eosinophils 3.3 % (0.0-10.0); %Monocytes 13.3 % (0.0-10.0); %Neutrophils 51.2 % (42.0-75.0); Hemoglobin 10.1 g/dL (12.0-16.0); Mean Corpuscular HGB CONC 31.8 g/dL (32.0-36.0); Mean Corpuscular Hemoglobin 31.1 pg (27.0-31.0); Mean Corpuscular Volume 97.7 fL (78.0-98.0); Mean Platelet Volume 5.5 fL (7.4-10.4); Platelet Count 216 thou/uL (130-400); RBC Distribution Width 13.1 % (11.5-14.5); Red Blood Cell (RBC) Count 3.26 mill/uL (4.20-5.40); White Blood Cell (WBC) Count 3.7 thou/uL (4.8-10.8)
[2020-06-30 06:19] LABS: Anion Gap 12 mmol/L (10-20); BUN (Urea Nitrogen) 16 mg/dL (9.8-20.1); Calc. Creatinine Clearance 53 mL/min (70-130); Calcium 9.9 mg/dL (7.8-10.44); Carbon Dioxide 26 mmol/L (23-31); Chloride 106 mmol/L (98-107); Glucose 154 mg/dL (83-110); Potassium 4.1 mmol/L (3.5-5.1); Sodium 140 mmol/L (136-145)
[2020-06-30] MEDS: Hydrochlorothiazide 25 MG TAB PO SCH (08:47)
[2020-06-30] MEDS: Ubidecarenone 50 MG CAP PO SCH (08:49)
[2020-06-30] MEDS: Fluticasone Propionate Nasal Spray 16 gm Bottle NASAL SCH (08:49)
[2020-06-30] MEDS: Ferrous Sulfate 325 MG TAB PO SCH ×2 (08:50→17:51)
[2020-06-30] MEDS: AMOXicillin 250 MG CAP PO SCH ×3 (08:50→20:13)
[2020-06-30] MEDS: Lisinopril 5 MG TAB PO SCH (08:50)
[2020-06-30] MEDS: Rosuvastatin 10 MG TAB PO SCH (08:51)
[2020-06-30] MEDS: Ascorbic Acid 500 mg Chewable Tablet PO SCH ×2 (08:51→20:13)
[2020-06-30] MEDS: Aspirin 81 mg Enteric Coated Tablet PO SCH (08:51)
[2020-06-30] MEDS: Acetaminophen 500 MG TAB PO PRN ×3 (08:51→21:25)
[2020-06-30] MEDS: metFORMIN 500 MG TAB PO SCH (17:51)
[2020-06-30] MEDS: Calcium Carbonate 500 MG ChewTAB PO PRN (20:22)
--- NOTE | 2020-07-01 05:22 | PRG ---
DATE OF SERVICE: 06/30/2020 SUBJECTIVE: The patient states she is feeling pretty good today. Her insurance indicated that they would not cover beyond tomorrow, 07/01, but she has appealed this. Hopefully, we will hear something today. She has ordered a wheelchair, which will be essential for her at home, but it will not come in till sometime tomorrow. OBJECTIVE: GENERAL: The patient is sitting up in a wheelchair, in physical therapy. She is alert, appears in no distress. VITAL SIGNS: Show a temperature 97.6, pulse 75, blood pressure 135/69, respirations 16, and O2 saturation 98% on room air. LUNGS: Clear. HEART: Regular rate. EXTREMITIES: Incisions in the left leg are gradually healing. LABORATORY DATA: CBC shows an H and H of 10.1 and 31.8, white cell count 3700 with 51% segs, 31% lymphocytes, and platelet count of 216,000. Sodium 140, potassium 4.1, BUN is 16, creatinine 0.73, and FBS 154. ASSESSMENT: 1. Weakness and gait abnormality. a. Following a fall and fracture of the distal left femur, requiring open reduction and internal fixation on 06/10/2020. b. Doing well. Pain is controlled. Remains on no weightbearing on the left leg. 2. Closed overriding fracture of the distal left femoral shaft. a. Secondary to mechanical fall on 06/09/2020. b. Status post open reduction and internal fixation by Dr. Lynn on 06/10/2020. c. Remains at no weightbearing on the left leg for minimum of six weeks postop. 3. Coronary artery disease. a. Status post coronary artery bypass x4 in 2011. b. Asymptomatic. 4. Hypertension. 5. Thrombocytopenia, resolved. Platelet count 216,000 on 06/30/2020. 6. Diabetes, type 2. a. Hemoglobin A1c 6.1. b. FBS 154 on 06/30/2020. 7. Right maxillary sinusitis. a. Continued improvement as of 06/30/2020. PLAN: Arrangements are tentatively being made for her discharge tomorrow, 07/01/2020. She certainly would benefit for longer stay in the hospital for continued PT and OT, awaiting final word from her insurance. If she goes home, she will go home on the same medications that are listed in her current medicines. She will need the amoxicillin 500 for additional five days. She is scheduled to see orthopedic surgeon in followup on 07/20 and she will need to be seen by her primary care physician in 2 weeks with a CBC and basic metabolic panel. I have written her for a PureWick to use for urinary incontinence at nighttime. Home Health will also slate picker on her care. Job ID: [id number]
[2020-07-01] MEDS: Ferrous Sulfate 325 MG TAB PO SCH ×2 (08:18→17:01)
[2020-07-01] MEDS: AMOXicillin 250 MG CAP PO SCH ×3 (08:18→20:49)
[2020-07-01] MEDS: Fluticasone Propionate Nasal Spray 16 gm Bottle NASAL SCH (08:19)
[2020-07-01] MEDS: Aspirin 81 mg Enteric Coated Tablet PO SCH (08:19)
[2020-07-01] MEDS: Lisinopril 5 MG TAB PO SCH (08:19)
[2020-07-01] MEDS: Ascorbic Acid 500 mg Chewable Tablet PO SCH ×2 (08:19→20:50)
[2020-07-01] MEDS: Rosuvastatin 10 MG TAB PO SCH (08:19)
[2020-07-01] MEDS: Ubidecarenone 50 MG CAP PO SCH (08:20)
[2020-07-01] MEDS: Hydrochlorothiazide 25 MG TAB PO SCH (08:20)
[2020-07-01] MEDS: Acetaminophen 500 MG TAB PO PRN ×3 (08:26→20:49)
[2020-07-01] MEDS: Calcium Carbonate 500 MG ChewTAB PO PRN (14:36)
[2020-07-01] MEDS: metFORMIN 500 MG TAB PO SCH (17:01)
[2020-07-02] MEDS: AMOXicillin 250 MG CAP PO SCH ×3 (08:30→20:27)
[2020-07-02] MEDS: Fluticasone Propionate Nasal Spray 16 gm Bottle NASAL SCH (08:30)
[2020-07-02] MEDS: Ferrous Sulfate 325 MG TAB PO SCH ×2 (08:30→17:04)
[2020-07-02] MEDS: Ascorbic Acid 500 mg Chewable Tablet PO SCH ×2 (08:30→20:28)
[2020-07-02] MEDS: Acetaminophen 500 MG TAB PO PRN ×3 (08:31→21:37)
[2020-07-02] MEDS: Rosuvastatin 10 MG TAB PO SCH (08:31)
[2020-07-02] MEDS: Ubidecarenone 50 MG CAP PO SCH (08:31)
[2020-07-02] MEDS: Aspirin 81 mg Enteric Coated Tablet PO SCH (08:31)
[2020-07-02] MEDS: Lisinopril 5 MG TAB PO SCH (08:31)
[2020-07-02] MEDS: Hydrochlorothiazide 25 MG TAB PO SCH (08:32)
--- NOTE | 2020-07-02 11:24 | PRG ---
DATE OF SERVICE: 07/02/2020 SUBJECTIVE: The patient says she is doing good this morning. Her face is feeling better. Her leg is feeling good. The patient said that her insurance has allowed her a few more days. She is not sure exactly when the end date will be. Therapy will continue working with her. OBJECTIVE: GENERAL: The patient is sitting up in her wheelchair with left leg elevated. She looks comfortable and in no distress. VITAL SIGNS: Her temp is 98.4, pulse 77, respirations 18, O2 saturation 95% on room air, blood pressure 125/71. LUNGS: Clear. HEART: Regular rate. EXTREMITIES: No edema. LABORATORY DATA: Her FBS this morning 163, yesterday was 137. ASSESSMENT: 1. Weakness and gait abnormality. a. Following a fall and fracture of the distal left femur requiring ORIF on 06/10/2020. b. Doing well. Pain controlled. Remains at no weightbearing on the left leg. 2. Closed overriding fracture of the left distal femoral shaft. a. Secondary to a mechanical fall on 06/09/2020. b. Status post open reduction and internal fixation by Dr. Lynn on 06/10/2020. c. Remains at no weightbearing on the left leg for a minimum of 6 weeks postop. d. Doing very well as of 07/02. 3. Coronary artery disease. a. Status post coronary artery bypass x4 in 2011. b. Asymptomatic. 4. Hypertension. 5. Thrombocytopenia, resolved. Platelet count 216,000 on 06/30/2020. 6. Diabetes type 2. a. Hemoglobin A1c 6.1. b. FBS 163 on the morning of 07/02/2020. 7. Right maxillary sinusitis. a. Improving as of 07/02. PLAN: The patient's insurance has allowed her additional days, do not know the end date. We will continue her PT and OT, which she certainly will benefit from. Continue routine medication. Job ID: [id number]
[2020-07-02] MEDS: metFORMIN 500 MG TAB PO SCH (17:04)
[2020-07-03] MEDS: Ferrous Sulfate 325 MG TAB PO SCH ×2 (08:06→16:58)
[2020-07-03] MEDS: Ascorbic Acid 500 mg Chewable Tablet PO SCH ×2 (08:07→21:09)
[2020-07-03] MEDS: AMOXicillin 250 MG CAP PO SCH ×3 (08:07→21:08)
[2020-07-03] MEDS: Aspirin 81 mg Enteric Coated Tablet PO SCH (08:07)
[2020-07-03] MEDS: Lisinopril 5 MG TAB PO SCH (08:07)
[2020-07-03] MEDS: Ubidecarenone 50 MG CAP PO SCH (08:07)
[2020-07-03] MEDS: Rosuvastatin 10 MG TAB PO SCH (08:08)
[2020-07-03] MEDS: Acetaminophen 500 MG TAB PO PRN ×3 (08:08→21:08)
[2020-07-03] MEDS: Fluticasone Propionate Nasal Spray 16 gm Bottle NASAL SCH (08:09)
[2020-07-03] MEDS: Hydrochlorothiazide 25 MG TAB PO SCH (08:09)
[2020-07-03 10:08] VITALS: BMI 22.0
--- NOTE | 2020-07-03 10:19 | PRG ---
DATE OF SERVICE: 07/03/2020 SUBJECTIVE: The patient says she is feeling better. She has worked with physical therapy. She is doing better with her transfers, has a little trouble with transferring out of the bed, but this is improving. She is still nonweightbearing on the left leg. She said her right face is feeling better. OBJECTIVE: GENERAL: The patient is alert, appears in no distress. VITAL SIGNS: Her temp is 98.7, pulse 79, respirations 18, O2 saturation 98% on room air, blood pressure 120/66. LUNGS: Clear. HEART: Regular rate. EXTREMITIES: Incision along the left lateral upper leg is healing well. There is no drainage, no surrounding redness. There is no peripheral edema. Bruising of the anterior mid leg is gradually fading. ASSESSMENT: 1. Weakness, gait abnormality. a. Following a fall and fracture of the distal left femur requiring open reduction internal fixation on 06/10/2020. b. Doing well. Pain control. Remains on no weightbearing on the left leg. 2. Closed overriding fracture of the left distal femoral shaft. a. Secondary to mechanical fall on 06/09/2020. b. Status post open reduction internal fixation by Dr. Lynn on 06/10/2020. c. Remains nonweightbearing on the left for a minimum of 6 weeks postop. d. Doing very well as of 07/03. 3. Coronary artery disease. a. Status post coronary artery bypass x4 in 2011. b. Asymptomatic. 4. Hypertension. 5. Thrombocytopenia, resolved. Platelet count 216 on 06/30/2020. 6. Diabetes type 2. a. Hemoglobin A1c 6.1. 7. Right maxillary sinusitis. Improving as of 07/03. PLAN: Continue present care. Continue PT and OT. Job ID: [id number]
[2020-07-03] MEDS: metFORMIN 500 MG TAB PO SCH (16:58)
[2020-07-04] MEDS: Aspirin 81 mg Enteric Coated Tablet PO SCH (08:09)
[2020-07-04] MEDS: Fluticasone Propionate Nasal Spray 16 gm Bottle NASAL SCH (08:09)
[2020-07-04] MEDS: Ubidecarenone 50 MG CAP PO SCH (08:09)
[2020-07-04] MEDS: Rosuvastatin 10 MG TAB PO SCH (08:09)
[2020-07-04] MEDS: Lisinopril 5 MG TAB PO SCH (08:11)
[2020-07-04] MEDS: Acetaminophen 500 MG TAB PO PRN ×3 (08:12→20:41)
[2020-07-04] MEDS: Hydrochlorothiazide 25 MG TAB PO SCH (08:12)
[2020-07-04] MEDS: Ascorbic Acid 500 mg Chewable Tablet PO SCH ×2 (08:13→20:41)
[2020-07-04] MEDS: AMOXicillin 250 MG CAP PO SCH ×3 (08:13→20:41)
[2020-07-04] MEDS: Ferrous Sulfate 325 MG TAB PO SCH ×2 (08:13→16:54)
--- NOTE | 2020-07-04 11:06 | PRG ---
DATE OF SERVICE: 07/04/2020 SUBJECTIVE: The patient says she is feeling very good. She said that she has already been to therapy this morning. Her pain is well controlled. Her right face is feeling much better. She thinks this has just almost completely resolved. OBJECTIVE: GENERAL: The patient is sitting up in her wheelchair eating breakfast. She is alert and talkative, appears in no distress. VITAL SIGNS: Her temperature is 98.4, pulse 74, respirations 15, O2 saturation 98% on room air, and blood pressure 103/72. LUNGS: Clear. HEART: Regular rate. EXTREMITIES: No edema. LABORATORY DATA: FBS was 165. ASSESSMENT: 1. Weakness and gait abnormality. a. Following a fall and fracture of the distal left femur, requiring open reduction and internal fixation on 06/10/2020. b. Doing very well. Pain controlled. Remains no weightbearing on the left leg. 2. Closed, overriding fracture of the left distal femoral shaft. a. Secondary to mechanical fall on 06/09/2020. b. Status post open reduction, internal fixation by Dr. Lynn on 06/10/2020. c. Remains nonweightbearing on the left for a minimum of 6 weeks postop. d. Doing very well as of 07/04. 3. Coronary artery disease. a. Status post coronary artery bypass x4 in 2011. b. Asymptomatic. 4. Hypertension. a. A little tightly controlled, at times, feels just a little dizzy as of 07/04. 5. Diabetes type 2. a. Hemoglobin A1c 6.1. 6. Right maxillary sinusitis, resolving as of 07/04. PLAN: We will stop her lisinopril. Continue her other medications. Continue PT and OT. Job ID: [id number]
[2020-07-04] MEDS: metFORMIN 500 MG TAB PO SCH (16:54)
[2020-07-05] MEDS: Fluticasone Propionate Nasal Spray 16 gm Bottle NASAL SCH (08:36)
[2020-07-05] MEDS: Ubidecarenone 50 MG CAP PO SCH (08:36)
[2020-07-05] MEDS: Ferrous Sulfate 325 MG TAB PO SCH ×2 (08:37→17:06)
[2020-07-05] MEDS: Aspirin 81 mg Enteric Coated Tablet PO SCH (08:37)
[2020-07-05] MEDS: AMOXicillin 250 MG CAP PO SCH ×3 (08:37→20:01)
[2020-07-05] MEDS: Acetaminophen 500 MG TAB PO PRN ×3 (08:37→21:25)
[2020-07-05] MEDS: Rosuvastatin 10 MG TAB PO SCH (08:37)
[2020-07-05] MEDS: Hydrochlorothiazide 25 MG TAB PO SCH (08:37)
[2020-07-05] MEDS: Ascorbic Acid 500 mg Chewable Tablet PO SCH ×2 (08:37→20:01)
[2020-07-05] MEDS: Polyethylene Glycol 3350 17 GM Packet PO PRN (13:18)
--- NOTE | 2020-07-05 13:29 | PRG ---
DATE OF SERVICE: 07/05/2020 SUBJECTIVE: The patient said she is doing good. She is feeling better. She is feeling stronger. She has had no shortness of breath or chest pain or right facial pain. OBJECTIVE: GENERAL: The patient is sitting up in her wheelchair, eating her breakfast. She is alert, talkative, and appears in no distress. VITAL SIGNS: Her temp 97.2, pulse 78, respirations 18, O2 saturations 98% on room air, blood pressure 123/66. LUNGS: Clear. HEART: Regular rate. EXTREMITIES: No edema. LABORATORY DATA: FBS this morning was 184. ASSESSMENT: 1. Weakness and gait abnormality. a. Following a fall and fracture of the distal left femur, requiring open reduction and internal fixation on 06/10/2020. b. Doing very well. Pain is controlled. Remains nonweightbearing on the left leg. 2. Closed overriding fracture of the left distal femoral shaft. a. Secondary to a mechanical fall on 06/09/2020. b. Status post open reduction and internal fixation by Dr. Lynn on 06/10/2020. c. Remains nonweightbearing on the left for a minimum of 6 weeks postop. d. Doing very well as of 07/05. 3. Coronary artery disease. a. Status post coronary artery bypass x4 in 2011. b. Asymptomatic. 4. Hypertension. 5. Diabetes type 2. a. Hemoglobin A1c 6.1. 6. Right maxillary sinusitis, resolving as of 07/05. PLAN: Continue present care. Continue PT and OT. Insurance said her last day of coverage will be 07/06, plan on discharge tomorrow. The patient is feeling confident that this will work fine for her. Job ID: [id number]
[2020-07-05] MEDS: metFORMIN 500 MG TAB PO SCH (17:06)
[2020-07-06] MEDS: Acetaminophen 500 MG TAB PO PRN ×2 (04:24→10:47)
[2020-07-06] MEDS: Rosuvastatin 10 MG TAB PO SCH (08:40)
[2020-07-06] MEDS: Ferrous Sulfate 325 MG TAB PO SCH (08:40)
[2020-07-06] MEDS: Ascorbic Acid 500 mg Chewable Tablet PO SCH (08:40)
[2020-07-06] MEDS: Ubidecarenone 50 MG CAP PO SCH (08:41)
[2020-07-06] MEDS: Hydrochlorothiazide 25 MG TAB PO SCH (08:41)
[2020-07-06] MEDS: Aspirin 81 mg Enteric Coated Tablet PO SCH (08:41)
[2020-07-06] MEDS: Fluticasone Propionate Nasal Spray 16 gm Bottle NASAL SCH (08:42)
[2020-07-06] MEDS: Polyethylene Glycol 3350 17 GM Packet PO PRN (08:48)
[2020-07-06 08:52] VITALS: BP 115/66; TEMP 98
--- NOTE | 2020-07-07 06:38 | DIS ---
DATE OF ADMISSION: 06/14/2020 DATE OF DISCHARGE: 07/06/2020 FINAL DIAGNOSES: 1. Weakness and gait abnormality. a. Following a fall with fracture of the distal left femur, requiring open reduction and internal fixation on 06/10/2020. b. Doing very well. Pain well controlled on Tylenol alone. She remains nonweightbearing on the left leg. 2. Closed overriding fracture of the distal left femoral shaft. a. Secondary to a mechanical fall on 06/09/2020. b. Status post open reduction and internal fixation by orthopedic surgeon, Dr. Lynn on 06/10/2020. c. Remains nonweightbearing on the left for a minimum of 6 weeks postop. d. Doing very well as of 07/06. 3. Coronary artery disease. a. Status post coronary artery bypass x4 in 2011. b. Asymptomatic. 4. Hypertension. 5. Diabetes, type 2. a. Hemoglobin A1c 6.1. 6. Right maxillary sinusitis, resolved as of 07/06. SUMMARY: The patient is an 89-year-old white female, who lives at her home with her and her daughter who lives in an adjacent home. She has a history of hypertension, coronary artery disease, diabetes that heretofore has been managed with diet alone. She is independent of all her ADLs. On 06/09/2020, she was going towards the back door inside her home, tripped, and fell. She did not think she was injured. EMS was called and they helped her back to bed. By the following morning, she knew that she probably had broken her left leg. Ambulance was called and she was taken to the hospital and admitted to [facility] on 06/10/2020. The patient had an overriding fracture of the left distal femur. Orthopedic surgeon, Dr. Lynn, took her to surgery on 06/10/2020, and did open reduction and internal fixation using LCP curved condylar distal femoral plate. She did very well postop. She was placed nonweightbearing on that left leg for a minimum of 6 weeks. She was transferred to [facility] on 06/14/2020 for continued physical therapy, but no weightbearing on the left leg. During her hospitalization, she did very well. She remained nonweightbearing on the left leg. She did do very well with her upper body strengthening, was able to stand and was able to take just a few steps by hopping with the use of a walker and assistance. Her incision healed well. She has seen Dr. Cabrera, Dr. Lynn' associates in followup and he felt she was doing well. The logan were removed and she was left at nonweightbearing on that left for a minimum of 6 weeks postop. She will see Dr. Cabrera in followup on 07/20. Her blood pressure was under good control during the hospitalization. She has a history of coronary artery disease, but this has been asymptomatic. She had no trouble with this. Her hemoglobin A1c was 6.1. Her blood sugars have been running around 180s. She was placed on metformin 500 mg at supper time. Her blood sugars have improved and running in the 160s. She did develop a right maxillary sinusitis that was treated with amoxicillin with resolution. By 07/06/2020, her condition improved such that it felt like she would be fine at home. Her insurance had also indicated they would not pay beyond 07/06 since her condition had improved. As such, arrangements have been made for home health to assist with her care with in-home PT and OT. Her daughter lives in adjacent home will be there to assist her. She felt very confident that they would be fine there at home. She has a wheelchair and a walker. Her last lab work done on 06/30 showed an H and H of 10.1 and 31.8. White cell count 3700 with 51% segs, 31% lymphocytes, platelet count of 216,000. Sodium 140, potassium 4.1, BUN 16, creatinine 0.73, GFR 75, glucose 154. DISPOSITION: DIET: Consistent carbohydrate. No added salt diet. MEDICATIONS: 1. Acetaminophen 500 mg two every 6 hours as needed for pain. 2. Ascorbic acid 500 mg b.i.d. 3. Ecotrin 81 mg daily. 4. Tums 500 mg two every 4 hours p.r.n. 5. Coenzyme 10, 200 mg daily. 6. Ferrous sulfate 325 mg b.i.d. 7. Hydrochlorothiazide 12.5 mg daily. 8. Metformin 500 mg daily at supper. 9. Metoprolol succinate 25 mg daily. 10. MiraLAX 17 g in 8 ounces of water daily as needed. 11. Rosuvastatin 20 mg daily. FOLLOWUP: Home Health will be seeing the patient. Arranged for in-home PT and OT. The patient will remain at nonweightbearing on the left leg. The patient is due to see her orthopedic surgeon in followup on 07/20/2020. The patient to see her primary care physician within 2 weeks and have the home health draw CBC and basic metabolic panel. CODE STATUS: Full code. Job ID: [id number] [id number]
== END 2020-07-06 11:40 | disposition home or self-care (01) | DRG 561 ==
LOC: MADMS 20:40
PROVIDERS: ADMIT Family Medicine; ATTEND Family Medicine
DX: S72.302D Unspecified fracture of shaft of left femur, subsequent encounter for closed fracture with routine healing (principal); R53.1 Weakness; R26.9 Unspecified abnormalities of gait and mobility; W01.0XXD Fall on same level from slipping, tripping and stumbling without subsequent striking against object, subsequent encounter; I25.10 Atherosclerotic heart disease of native coronary artery without angina pectoris; E78.5 Hyperlipidemia, unspecified; D69.6 Thrombocytopenia, unspecified; I10 Essential (primary) hypertension; E11.9 Type 2 diabetes mellitus without complications; Z95.1 Presence of aortocoronary bypass graft; Z79.899 Other long term (current) drug therapy; Z79.82 Long term (current) use of aspirin; Z79.891 Long term (current) use of opiate analgesic; Z88.2 Allergy status to sulfonamides; Z79.84 Long term (current) use of oral hypoglycemic drugs; J01.00 Acute maxillary sinusitis, unspecified
CPT/HCPCS: 36415; 36416; 80048; 80053; 83036; 85025

== ENCOUNTER 2020-07-25 13:45 | Outpatient (CLI) | payer MEDICARE ==
[2020-07-25 14:02] LABS: #Basophils 0.1 thou/uL (0.0-0.2); #Eosinphils 0.2 thou/uL (0.0-0.7); #Lymphocytes 1.6 thou/uL (1.20-3.40); #Monocytes 0.5 thou/uL (0.11-0.59); #Neutrophils 2.6 thou/uL (1.40-6.50); %Basophils 1.3 % (0.0-1.0); %Eosinophils 3.6 % (0.0-10.0); %Lymphocytes 32.5 % (21.0-51.0); %Monocytes 9.3 % (0.0-10.0); %Neutrophils 53.3 % (42.0-75.0); Hemoglobin 11.8 g/dL (12.0-16.0); Mean Corpuscular HGB CONC 31.3 g/dL (32.0-36.0); Mean Corpuscular Hemoglobin 30.6 pg (27.0-31.0); Mean Corpuscular Volume 97.8 fL (78.0-98.0); Mean Platelet Volume 6.6 fL (7.4-10.4); Platelet Count 196 thou/uL (130-400); RBC Distribution Width 13.4 % (11.5-14.5); Red Blood Cell (RBC) Count 3.87 mill/uL (4.20-5.40); White Blood Cell (WBC) Count 4.8 thou/uL (4.8-10.8)
[2020-07-25 14:12] LABS: Anion Gap 15 mmol/L (10-20); BUN (Urea Nitrogen) 15 mg/dL (9.8-20.1); Calc. Creatinine Clearance 0 mL/min (70-130); Calcium 10.4 mg/dL (7.8-10.44); Carbon Dioxide 27 mmol/L (23-31); Chloride 102 mmol/L (98-107); Glucose 191 mg/dL (83-110); Potassium 3.8 mmol/L (3.5-5.1); Sodium 140 mmol/L (136-145)
== END 2020-07-25 13:46 | disposition home or self-care (01) ==
LOC: MADLAB 13:45
PROVIDERS: ATTEND Family Medicine
DX: S72.402D Unspecified fracture of lower end of left femur, subsequent encounter for closed fracture with routine healing (principal); I25.10 Atherosclerotic heart disease of native coronary artery without angina pectoris; I10 Essential (primary) hypertension; E11.9 Type 2 diabetes mellitus without complications; E78.5 Hyperlipidemia, unspecified; Z95.1 Presence of aortocoronary bypass graft
CPT/HCPCS: 80048; 85025

== ENCOUNTER 2020-10-26 11:26 | Emergency (ER) | payer MEDICARE ==
[2020-10-26] MEDS ORDERED: Aspirin Chewable 81 MG TAB ONE (11:59)
[2020-10-26 12:19] LABS: Hemoglobin 11.2 g/dL (12.0-16.0); Mean Corpuscular HGB CONC 31.6 g/dL (32.0-36.0); Mean Corpuscular Hemoglobin 30.1 pg (27.0-31.0); Mean Corpuscular Volume 95.1 fL (78.0-98.0); Mean Platelet Volume 6.5 fL (7.4-10.4); Platelet Count 262 thou/uL (130-400); RBC Distribution Width 13.9 % (11.5-14.5); Red Blood Cell (RBC) Count 3.72 mill/uL (4.20-5.40); White Blood Cell (WBC) Count 7.1 thou/uL (4.8-10.8)
[2020-10-26 12:29] LABS: Anisocytosis SLIGHT = 6-15 cells (100X) (0-5/hpf); Band 3 % (5-11); Eosinophils 6 % (0-10); MDiff Complete? YES; Manual Diff?? YES; Monocytes 5 % (0-10); Neutrophil 60 % (42-75); Platelet Morphology Comment Appears Adequate
[2020-10-26 12:30] LABS: Lymphocytes 26 % (21-51)
[2020-10-26 12:31] LABS: ALT (SGPT) 13 U/L (8-55); AST (SGOT) 17 U/L (5-34); Albumin 3.7 g/dL (3.4-4.8); Alkaline Phosphatase 79 U/L (40-110); Anion Gap 14 mmol/L (10-20); BUN (Urea Nitrogen) 14 mg/dL (9.8-20.1); Bilirubin, Total 0.5 mg/dL (0.2-1.2); Calc. Creatinine Clearance 0 mL/min (70-130); Calcium 10.3 mg/dL (7.8-10.44); Carbon Dioxide 26 mmol/L (23-31); Chloride 105 mmol/L (98-107); Globulin 2.8 g/dL (2.4-3.5); Glucose 156 mg/dL (83-110); Magnesium 1.7 mg/dL (1.6-2.6); Potassium 3.6 mmol/L (3.5-5.1); Protein, Total 6.5 g/dL (5.8-8.1); Sodium 141 mmol/L (136-145)
[2020-10-26 13:03] LABS: CKMB 0.6 ng/mL (0-6.6)
[2020-10-26] MEDS ORDERED: Furosemide 20 MG/2 ML VIAL ONE (14:35)
[2020-10-26] MEDS ORDERED: Ondansetron ODT 4 MG TAB SL PRN (18:00)
[2020-10-26] MEDS ORDERED: Acetaminophen 325 MG TAB PO PRN (18:00)
[2020-10-26] MEDS ORDERED: Ondansetron PF 4 MG/2 ML Vial IVP PRN (18:00)
[2020-10-27] MEDS ORDERED: Aspirin Chewable 81 MG TAB PO SCH (09:00)
== END 2020-10-26 16:26 | disposition short-term general hospital (02) ==
LOC: MADERS 11:26
DX: I21.4 Non-ST elevation (NSTEMI) myocardial infarction (principal); I24.9 Acute ischemic heart disease, unspecified; E87.70 Fluid overload, unspecified; E11.9 Type 2 diabetes mellitus without complications; E78.5 Hyperlipidemia, unspecified; Z79.899 Other long term (current) drug therapy; Z79.82 Long term (current) use of aspirin
CPT/HCPCS: 71045; 80053; 82553; 83735; 83880; 84484; 85025; 93005; 96374; J1940

== ENCOUNTER 2020-12-20 11:21 | Outpatient (CLI) | payer MEDICARE ==
[2020-12-20 11:55] LABS: #Basophils 0.1 thou/uL (0.0-0.2); #Eosinphils 0.2 thou/uL (0.0-0.7); #Lymphocytes 1.2 thou/uL (1.20-3.40); #Monocytes 0.6 thou/uL (0.11-0.59); #Neutrophils 2.4 thou/uL (1.40-6.50); %Basophils 1.2 % (0.0-1.0); %Eosinophils 4.3 % (0.0-10.0); %Lymphocytes 26.1 % (21.0-51.0); %Monocytes 12.7 % (0.0-10.0); %Neutrophils 55.7 % (42.0-75.0); Hemoglobin 10.7 g/dL (12.0-16.0); Mean Corpuscular HGB CONC 31.8 g/dL (32.0-36.0); Mean Corpuscular Hemoglobin 31.1 pg (27.0-31.0); Mean Corpuscular Volume 97.9 fL (78.0-98.0); Mean Platelet Volume 6.8 fL (7.4-10.4); Platelet Count 172 thou/uL (130-400); RBC Distribution Width 13.2 % (11.5-14.5); Red Blood Cell (RBC) Count 3.45 mill/uL (4.20-5.40); White Blood Cell (WBC) Count 4.4 thou/uL (4.8-10.8)
[2020-12-20 12:18] LABS: Vancomycin, Trough 17.6 ug/mL
[2020-12-20 12:21] LABS: Anion Gap 14 mmol/L (10-20); BUN (Urea Nitrogen) 16 mg/dL (9.8-20.1); CRP (Inflammatory) Less than 0.50 mg/dL (= or < 0.5); Calc. Creatinine Clearance 0 mL/min (70-130); Calcium 10.2 mg/dL (7.8-10.44); Carbon Dioxide 22 mmol/L (23-31); Chloride 105 mmol/L (98-107); Glucose 255 mg/dL (83-110); Potassium 4.2 mmol/L (3.5-5.1); Sodium 137 mmol/L (136-145)
== END 2020-12-20 11:22 | disposition home or self-care (01) ==
LOC: MADLAB 11:21
PROVIDERS: ATTEND Internal Medicine Infectious Disease
DX: Z51.81 Encounter for therapeutic drug level monitoring (principal); Z79.2 Long term (current) use of antibiotics
CPT/HCPCS: 80048; 80202; 85025; 86140

== ENCOUNTER 2020-12-26 13:33 | Outpatient (CLI) | payer MEDICARE ==
[2020-12-26 13:45] LABS: #Basophils 0.1 thou/uL (0.0-0.2); #Eosinphils 0.3 thou/uL (0.0-0.7); #Lymphocytes 1.2 thou/uL (1.20-3.40); #Monocytes 0.6 thou/uL (0.11-0.59); #Neutrophils 2.9 thou/uL (1.40-6.50); %Basophils 1.5 % (0.0-1.0); %Eosinophils 5.9 % (0.0-10.0); %Lymphocytes 23.1 % (21.0-51.0); %Monocytes 12.4 % (0.0-10.0); %Neutrophils 57.2 % (42.0-75.0); Hemoglobin 10.3 g/dL (12.0-16.0); Mean Corpuscular HGB CONC 31.9 g/dL (32.0-36.0); Mean Corpuscular Hemoglobin 30.8 pg (27.0-31.0); Mean Corpuscular Volume 96.7 fL (78.0-98.0); Mean Platelet Volume 7.1 fL (7.4-10.4); Platelet Count 141 thou/uL (130-400); RBC Distribution Width 13.7 % (11.5-14.5); Red Blood Cell (RBC) Count 3.32 mill/uL (4.20-5.40)
[2020-12-26 13:54] LABS: Anion Gap 12 mmol/L (10-20); BUN (Urea Nitrogen) 17 mg/dL (9.8-20.1); CRP (Inflammatory) Less than 0.50 mg/dL (= or < 0.5); Calc. Creatinine Clearance 0 mL/min (70-130); Calcium 10.4 mg/dL (7.8-10.44); Carbon Dioxide 24 mmol/L (23-31); Chloride 110 mmol/L (98-107); Glucose 103 mg/dL (83-110); Potassium 3.7 mmol/L (3.5-5.1); Sodium 142 mmol/L (136-145)
[2020-12-26 14:08] LABS: Vancomycin, Trough 30.3 ug/mL
== END 2020-12-26 13:34 | disposition home or self-care (01) ==
LOC: MADLAB 13:33
PROVIDERS: ATTEND Internal Medicine Infectious Disease
DX: B49 Unspecified mycosis (principal); B96.5 Pseudomonas (aeruginosa) (mallei) (pseudomallei) as the cause of diseases classified elsewhere
CPT/HCPCS: 80048; 80202; 85025; 86140

== ENCOUNTER 2020-12-28 11:22 | Outpatient (CLI) | payer MEDICARE ==
[2020-12-28 11:39] LABS: Vancomycin, Trough 16.9 ug/mL
== END 2020-12-28 11:23 | disposition home or self-care (01) ==
LOC: MADLAB 11:22
PROVIDERS: ATTEND Internal Medicine Infectious Disease
DX: B95.62 Methicillin resistant Staphylococcus aureus infection as the cause of diseases classified elsewhere (principal)
CPT/HCPCS: 80202

== ENCOUNTER 2021-01-02 17:16 | Outpatient (CLI) | payer MEDICARE ==
[2021-01-02 17:32] LABS: #Eosinphils 0.3 thou/uL (0.0-0.7); #Lymphocytes 1.1 thou/uL (1.20-3.40); #Monocytes 0.6 thou/uL (0.11-0.59); #Neutrophils 2.2 thou/uL (1.40-6.50); %Basophils 1.1 % (0.0-1.0); %Eosinophils 6.5 % (0.0-10.0); %Lymphocytes 25.2 % (21.0-51.0); %Monocytes 14.5 % (0.0-10.0); %Neutrophils 52.8 % (42.0-75.0); Hemoglobin 9.9 g/dL (12.0-16.0); Mean Corpuscular HGB CONC 31.7 g/dL (32.0-36.0); Mean Corpuscular Hemoglobin 31.4 pg (27.0-31.0); Platelet Count 142 thou/uL (130-400); RBC Distribution Width 14.1 % (11.5-14.5); Red Blood Cell (RBC) Count 3.17 mill/uL (4.20-5.40); White Blood Cell (WBC) Count 4.2 thou/uL (4.8-10.8)
[2021-01-02 17:42] LABS: Vancomycin, Trough 20.4 ug/mL
[2021-01-02 17:45] LABS: Anion Gap 16 mmol/L (10-20); BUN (Urea Nitrogen) 17 mg/dL (9.8-20.1); CRP (Inflammatory) Less than 0.50 mg/dL (= or < 0.5); Calc. Creatinine Clearance 0 mL/min (70-130); Carbon Dioxide 23 mmol/L (23-31); Chloride 107 mmol/L (98-107); Glucose 228 mg/dL (83-110); Sodium 143 mmol/L (136-145)
== END 2021-01-02 17:17 | disposition home or self-care (01) ==
LOC: MADLAB 17:16
PROVIDERS: ATTEND Internal Medicine Infectious Disease
DX: I11.0 Hypertensive heart disease with heart failure (principal); I50.9 Heart failure, unspecified; I25.10 Atherosclerotic heart disease of native coronary artery without angina pectoris; B95.62 Methicillin resistant Staphylococcus aureus infection as the cause of diseases classified elsewhere; J30.89 Other allergic rhinitis; B49 Unspecified mycosis
CPT/HCPCS: 80048; 80202; 85025; 86140

== ENCOUNTER 2021-01-26 15:03 | Inpatient (IN) | payer MEDICARE ==
[2021-01-26] MEDS: SODIUM CHLORIDE 0.9% FS SCH (20:32)
[2021-01-26] MEDS: Apixaban 5 MG TAB PO SCH (20:32)
[2021-01-26] MEDS: Lisinopril 20 MG TAB PO SCH (20:32)
[2021-01-26] MEDS: Rosuvastatin 10 MG TAB PO SCH (20:32)
[2021-01-26] MEDS: metFORMIN 500 MG TAB PO SCH (20:33)
[2021-01-26] MEDS: Melatonin 3 MG TAB PO SCH (20:33)
[2021-01-27] MEDS: Acetaminophen 325 MG TAB PO PRN (00:38)
[2021-01-27] MEDS ORDERED: Meropenem 1 GM in Sodium Chloride 0.9% 100 ML IVPB SCH (01:00)
[2021-01-27] MEDS: Ferrous Sulfate 325 MG TAB PO SCH ×2 (08:18→17:02)
[2021-01-27] MEDS: Acetaminophen 500 MG TAB PO SCH (08:19)
[2021-01-27] MEDS: Lisinopril 20 MG TAB PO SCH ×2 (08:20→20:25)
[2021-01-27] MEDS: Aspirin 81 mg Enteric Coated Tablet PO SCH (08:20)
[2021-01-27] MEDS: Apixaban 5 MG TAB PO SCH ×2 (08:20→20:25)
[2021-01-27] MEDS: Furosemide 20 MG TAB PO SCH (08:20)
[2021-01-27] MEDS: SODIUM CHLORIDE 0.9% FS SCH ×3 (08:23→20:26)
[2021-01-27] MEDS: Meropenem 1 GM in Sodium Chloride 0.9% 100 ML IVPB SCH ×2 (10:29→17:02)
[2021-01-27] MEDS: Rosuvastatin 10 MG TAB PO SCH (20:24)
[2021-01-27] MEDS: Melatonin 3 MG TAB PO SCH (20:25)
[2021-01-27] MEDS: metFORMIN 500 MG TAB PO SCH (20:26)
[2021-01-28] MEDS: Acetaminophen 325 MG TAB PO PRN (00:42)
[2021-01-28] MEDS: Meropenem 1 GM in Sodium Chloride 0.9% 100 ML IVPB SCH ×3 (01:00→17:55)
[2021-01-28] MEDS: Acetaminophen 500 MG TAB PO SCH (08:37)
[2021-01-28] MEDS: Ferrous Sulfate 325 MG TAB PO SCH ×2 (08:37→16:54)
[2021-01-28] MEDS: Aspirin 81 mg Enteric Coated Tablet PO SCH (08:37)
[2021-01-28] MEDS: Furosemide 20 MG TAB PO SCH (08:37)
[2021-01-28] MEDS: Apixaban 5 MG TAB PO SCH ×2 (08:37→20:44)
[2021-01-28] MEDS: Lisinopril 20 MG TAB PO SCH ×2 (08:37→20:44)
[2021-01-28] MEDS: SODIUM CHLORIDE 0.9% FS SCH ×3 (08:38→20:44)
[2021-01-28 09:51] LABS: SARS-CoV-2 PCR by NAA Not Detected (NotDetected)
[2021-01-28] MEDS: Rosuvastatin 10 MG TAB PO SCH (20:43)
[2021-01-28] MEDS: Melatonin 3 MG TAB PO SCH (20:43)
[2021-01-28] MEDS: metFORMIN 500 MG TAB PO SCH (20:44)
[2021-01-29] MEDS: Meropenem 1 GM in Sodium Chloride 0.9% 100 ML IVPB SCH ×3 (01:27→17:48)
[2021-01-29] MEDS: Acetaminophen 325 MG TAB PO PRN (05:05)
[2021-01-29 05:21] LABS: #Basophils 0.1 thou/uL (0.0-0.2); #Eosinphils 0.3 thou/uL (0.0-0.7); #Monocytes 0.9 thou/uL (0.11-0.59); #Neutrophils 4.2 thou/uL (1.40-6.50); %Eosinophils 3.4 % (0.0-10.0); %Lymphocytes 26.4 % (21.0-51.0); %Monocytes 11.9 % (0.0-10.0); %Neutrophils 57.2 % (42.0-75.0); Hemoglobin 11.6 g/dL (12.0-16.0); Mean Corpuscular HGB CONC 33.9 g/dL (32.0-36.0); Mean Corpuscular Hemoglobin 31.9 pg (27.0-31.0); Mean Platelet Volume 6.4 fL (7.4-10.4); Platelet Count 226 thou/uL (130-400); RBC Distribution Width 13.5 % (11.5-14.5); Red Blood Cell (RBC) Count 3.65 mill/uL (4.20-5.40); White Blood Cell (WBC) Count 7.4 thou/uL (4.8-10.8)
[2021-01-29 05:39] LABS: ALT (SGPT) 48 U/L (8-55); AST (SGOT) 44 U/L (5-34); Albumin 3.6 g/dL (3.4-4.8); Alkaline Phosphatase 57 U/L (40-110); Anion Gap 13 mmol/L (10-20); BUN (Urea Nitrogen) 15 mg/dL (9.8-20.1); Bilirubin, Total 0.4 mg/dL (0.2-1.2); Calc. Creatinine Clearance 41 mL/min (70-130); Calcium 10.9 mg/dL (7.8-10.44); Carbon Dioxide 30 mmol/L (23-31); Chloride 103 mmol/L (98-107); Globulin 2.8 g/dL (2.4-3.5); Glucose 140 mg/dL (83-110); Potassium 3.4 mmol/L (3.5-5.1); Protein, Total 6.4 g/dL (5.8-8.1); Sodium 143 mmol/L (136-145)
[2021-01-29] MEDS ORDERED: Bisacodyl 10 MG SUPP PR PRN (08:10)
[2021-01-29] MEDS: Ferrous Sulfate 325 MG TAB PO SCH ×2 (08:30→17:48)
[2021-01-29] MEDS: Furosemide 20 MG TAB PO SCH (08:31)
[2021-01-29] MEDS: Lisinopril 20 MG TAB PO SCH ×2 (08:31→20:12)
[2021-01-29] MEDS: Acetaminophen 500 MG TAB PO SCH (08:33)
[2021-01-29] MEDS: SODIUM CHLORIDE 0.9% FS SCH ×3 (08:34→20:14)
[2021-01-29] MEDS: Apixaban 5 MG TAB PO SCH ×2 (08:34→20:12)
[2021-01-29] MEDS: Aspirin 81 mg Enteric Coated Tablet PO SCH (08:34)
[2021-01-29] MEDS ORDERED: Polyethylene Glycol 3350 17 GM Packet PO SCH ×2 (09:00→22:45)
[2021-01-29] MEDS: Melatonin 3 MG TAB PO SCH (20:12)
[2021-01-29] MEDS: metFORMIN 500 MG TAB PO SCH (20:14)
[2021-01-29] MEDS: Rosuvastatin 10 MG TAB PO SCH (20:14)
[2021-01-29] MEDS ORDERED: Fleet Enema 133 ML BOT PR PRN (22:41)
[2021-01-30] MEDS: Acetaminophen 325 MG TAB PO PRN (00:01)
[2021-01-30] MEDS: Meropenem 1 GM in Sodium Chloride 0.9% 100 ML IVPB SCH ×3 (02:00→17:24)
[2021-01-30] MEDS: Acetaminophen 500 MG TAB PO SCH (08:23)
[2021-01-30] MEDS: Lisinopril 20 MG TAB PO SCH ×2 (08:23→20:44)
[2021-01-30] MEDS: Apixaban 5 MG TAB PO SCH ×2 (08:23→20:42)
[2021-01-30] MEDS: Polyethylene Glycol 3350 17 GM Packet PO SCH ×2 (08:23→20:45)
[2021-01-30] MEDS: Aspirin 81 mg Enteric Coated Tablet PO SCH (08:23)
[2021-01-30] MEDS: Ferrous Sulfate 325 MG TAB PO SCH ×2 (08:24→17:26)
[2021-01-30] MEDS: Furosemide 20 MG TAB PO SCH (08:24)
[2021-01-30] MEDS: SODIUM CHLORIDE 0.9% FS SCH ×3 (09:33→20:45)
[2021-01-30] MEDS: Rosuvastatin 10 MG TAB PO SCH (20:41)
[2021-01-30] MEDS: metFORMIN 500 MG TAB PO SCH (20:42)
[2021-01-30] MEDS: Melatonin 3 MG TAB PO SCH (20:42)
[2021-01-31] MEDS: Meropenem 1 GM in Sodium Chloride 0.9% 100 ML IVPB SCH ×3 (01:45→17:34)
[2021-01-31] MEDS: Polyethylene Glycol 3350 17 GM Packet PO SCH ×2 (08:12→20:34)
[2021-01-31] MEDS: Ferrous Sulfate 325 MG TAB PO SCH ×2 (08:12→17:34)
[2021-01-31] MEDS: Apixaban 5 MG TAB PO SCH ×2 (08:12→20:15)
[2021-01-31] MEDS: Furosemide 20 MG TAB PO SCH (08:12)
[2021-01-31] MEDS: Aspirin 81 mg Enteric Coated Tablet PO SCH (08:12)
[2021-01-31] MEDS: Lisinopril 20 MG TAB PO SCH ×3 (08:12→20:37)
[2021-01-31] MEDS: Acetaminophen 500 MG TAB PO SCH (08:13)
[2021-01-31] MEDS: SODIUM CHLORIDE 0.9% FS SCH ×3 (08:13→20:19)
[2021-01-31] MEDS: Rosuvastatin 10 MG TAB PO SCH (20:14)
[2021-01-31] MEDS: metFORMIN 500 MG TAB PO SCH (20:15)
[2021-01-31] MEDS: Melatonin 3 MG TAB PO SCH (20:16)
[2021-01-31] MEDS: BUDESONIDE 0.5 MG/2 ML TOP SCH (20:24)
[2021-02-01] MEDS: Meropenem 1 GM in Sodium Chloride 0.9% 100 ML IVPB SCH ×3 (01:56→18:58)
[2021-02-01] MEDS: Apixaban 5 MG TAB PO SCH ×2 (08:44→20:44)
[2021-02-01] MEDS: Aspirin 81 mg Enteric Coated Tablet PO SCH (08:44)
[2021-02-01] MEDS: Ferrous Sulfate 325 MG TAB PO SCH ×2 (08:44→18:58)
[2021-02-01] MEDS: SODIUM CHLORIDE 0.9% FS SCH ×3 (08:45→20:53)
[2021-02-01] MEDS: Furosemide 20 MG TAB PO SCH (08:45)
[2021-02-01] MEDS: Polyethylene Glycol 3350 17 GM Packet PO SCH ×2 (08:45→20:53)
[2021-02-01] MEDS: Lisinopril 20 MG TAB PO SCH ×2 (08:45→20:44)
[2021-02-01] MEDS: Acetaminophen 500 MG TAB PO SCH (08:46)
[2021-02-01] MEDS: BUDESONIDE 0.5 MG/2 ML TOP SCH ×2 (08:47→20:52)
[2021-02-01] MEDS: Melatonin 3 MG TAB PO SCH (20:44)
[2021-02-01] MEDS: metFORMIN 500 MG TAB PO SCH (20:45)
[2021-02-01] MEDS: Rosuvastatin 10 MG TAB PO SCH (20:45)
[2021-02-02] MEDS: Meropenem 1 GM in Sodium Chloride 0.9% 100 ML IVPB SCH ×3 (02:43→18:13)
[2021-02-02] MEDS: Acetaminophen 325 MG TAB PO PRN (02:43)
[2021-02-02 05:28] LABS: Eosinophils 4 % (0-10); Hemoglobin 10.4 g/dL (12.0-16.0); Lymphocytes 21 % (21-51); MDiff Complete? YES; Mean Corpuscular HGB CONC 32.5 g/dL (32.0-36.0); Mean Corpuscular Volume 95.6 fL (78.0-98.0); Mean Platelet Volume 7.1 fL (7.4-10.4); Monocytes 15 % (0-10); Neutrophil 60 % (42-75); Platelet Count 188 thou/uL (130-400); Platelet Morphology Comment Appears Adequate; RBC Distribution Width 12.8 % (11.5-14.5); RBC Morphology Normal; Red Blood Cell (RBC) Count 3.35 mill/uL (4.20-5.40); White Blood Cell (WBC) Count 5.3 thou/uL (4.8-10.8)
[2021-02-02 05:30] LABS: Anion Gap 14 mmol/L (10-20); BUN (Urea Nitrogen) 19 mg/dL (9.8-20.1); Calc. Creatinine Clearance 40 mL/min (70-130); Calcium 10.8 mg/dL (7.8-10.44); Carbon Dioxide 26 mmol/L (23-31); Chloride 104 mmol/L (98-107); Glucose 143 mg/dL (83-110); Potassium 3.3 mmol/L (3.5-5.1); Sodium 141 mmol/L (136-145)
[2021-02-02] MEDS: Ferrous Sulfate 325 MG TAB PO SCH ×2 (10:15→18:13)
[2021-02-02] MEDS: Apixaban 5 MG TAB PO SCH ×2 (10:15→21:43)
[2021-02-02] MEDS: Aspirin 81 mg Enteric Coated Tablet PO SCH (10:15)
[2021-02-02] MEDS: Polyethylene Glycol 3350 17 GM Packet PO SCH ×2 (10:16→21:49)
[2021-02-02] MEDS: Lisinopril 20 MG TAB PO SCH ×2 (10:18→21:43)
[2021-02-02] MEDS: SODIUM CHLORIDE 0.9% FS SCH ×3 (10:18→21:48)
[2021-02-02] MEDS: BUDESONIDE 0.5 MG/2 ML TOP SCH ×2 (10:19→21:48)
[2021-02-02] MEDS: Furosemide 20 MG TAB PO SCH (11:43)
[2021-02-02] MEDS: Acetaminophen 500 MG TAB PO SCH (11:44)
[2021-02-02] MEDS: Melatonin 3 MG TAB PO SCH (21:46)
[2021-02-02] MEDS: metFORMIN 500 MG TAB PO SCH (21:47)
[2021-02-02] MEDS: Rosuvastatin 10 MG TAB PO SCH (21:49)
[2021-02-03] MEDS: Meropenem 1 GM in Sodium Chloride 0.9% 100 ML IVPB SCH ×3 (02:43→17:41)
[2021-02-03] MEDS: Acetaminophen 325 MG TAB PO PRN (02:43)
[2021-02-03] MEDS: Aspirin 81 mg Enteric Coated Tablet PO SCH (09:56)
[2021-02-03] MEDS: Ferrous Sulfate 325 MG TAB PO SCH ×2 (09:57→17:29)
[2021-02-03] MEDS: Lisinopril 20 MG TAB PO SCH ×2 (09:57→22:22)
[2021-02-03] MEDS: Apixaban 5 MG TAB PO SCH ×2 (09:57→22:22)
[2021-02-03] MEDS: Acetaminophen 500 MG TAB PO SCH (09:57)
[2021-02-03] MEDS: Polyethylene Glycol 3350 17 GM Packet PO SCH ×2 (09:59→22:26)
[2021-02-03] MEDS: SODIUM CHLORIDE 0.9% FS SCH ×3 (09:59→22:24)
[2021-02-03] MEDS: BUDESONIDE 0.5 MG/2 ML TOP SCH ×2 (10:00→22:23)
[2021-02-03] MEDS: Melatonin 3 MG TAB PO SCH (22:21)
[2021-02-03] MEDS: metFORMIN 500 MG TAB PO SCH (22:23)
[2021-02-03] MEDS: Rosuvastatin 10 MG TAB PO SCH (22:24)
[2021-02-04] MEDS: Acetaminophen 325 MG TAB PO PRN (02:39)
[2021-02-04] MEDS: Meropenem 1 GM in Sodium Chloride 0.9% 100 ML IVPB SCH ×3 (02:39→17:52)
[2021-02-04] MEDS: Apixaban 5 MG TAB PO SCH ×2 (10:04→21:23)
[2021-02-04] MEDS: Ferrous Sulfate 325 MG TAB PO SCH ×2 (10:04→17:52)
[2021-02-04] MEDS: Aspirin 81 mg Enteric Coated Tablet PO SCH (10:04)
[2021-02-04] MEDS: Lisinopril 20 MG TAB PO SCH ×2 (10:04→21:23)
[2021-02-04] MEDS: Acetaminophen 500 MG TAB PO SCH (10:05)
[2021-02-04] MEDS: Polyethylene Glycol 3350 17 GM Packet PO SCH ×2 (10:06→21:26)
[2021-02-04] MEDS: SODIUM CHLORIDE 0.9% FS SCH ×3 (10:07→21:25)
[2021-02-04] MEDS: BUDESONIDE 0.5 MG/2 ML TOP SCH ×2 (10:08→21:25)
[2021-02-04] MEDS: Melatonin 3 MG TAB PO SCH (21:24)
[2021-02-04] MEDS: metFORMIN 500 MG TAB PO SCH (21:25)
[2021-02-04] MEDS: Rosuvastatin 10 MG TAB PO SCH (21:26)
[2021-02-05] MEDS: Acetaminophen 325 MG TAB PO PRN ×2 (02:42→15:26)
[2021-02-05] MEDS: Meropenem 1 GM in Sodium Chloride 0.9% 100 ML IVPB SCH ×3 (02:42→17:41)
[2021-02-05 05:31] LABS: #Basophils 0.1 thou/uL (0.0-0.2); #Eosinphils 0.2 thou/uL (0.0-0.7); #Lymphocytes 1.5 thou/uL (1.20-3.40); #Monocytes 0.6 thou/uL (0.11-0.59); #Neutrophils 2.4 thou/uL (1.40-6.50); %Basophils 1.3 % (0.0-1.0); %Eosinophils 4.5 % (0.0-10.0); %Lymphocytes 30.7 % (21.0-51.0); %Monocytes 13.1 % (0.0-10.0); %Neutrophils 50.4 % (42.0-75.0); Hemoglobin 9.9 g/dL (12.0-16.0); Mean Corpuscular HGB CONC 33.8 g/dL (32.0-36.0); Mean Corpuscular Hemoglobin 31.9 pg (27.0-31.0); Mean Corpuscular Volume 94.4 fL (78.0-98.0); Mean Platelet Volume 7.4 fL (7.4-10.4); Platelet Count 153 thou/uL (130-400); RBC Distribution Width 12.8 % (11.5-14.5); White Blood Cell (WBC) Count 4.7 thou/uL (4.8-10.8)
[2021-02-05 05:50] LABS: ALT (SGPT) 66 U/L (8-55); AST (SGOT) 87 U/L (5-34); Albumin 3.3 g/dL (3.4-4.8); Alkaline Phosphatase 64 U/L (40-110); Anion Gap 10 mmol/L (10-20); BUN (Urea Nitrogen) 18 mg/dL (9.8-20.1); Bilirubin, Total 0.4 mg/dL (0.2-1.2); Calc. Creatinine Clearance 44 mL/min (70-130); Calcium 10.3 mg/dL (7.8-10.44); Carbon Dioxide 26 mmol/L (23-31); Chloride 110 mmol/L (98-107); Globulin 2.1 g/dL (2.4-3.5); Glucose 137 mg/dL (83-110); Potassium 3.7 mmol/L (3.5-5.1); Protein, Total 5.4 g/dL (5.8-8.1); Sodium 142 mmol/L (136-145)
[2021-02-05] MEDS: Aspirin 81 mg Enteric Coated Tablet PO SCH (08:52)
[2021-02-05] MEDS: Lisinopril 20 MG TAB PO SCH ×2 (08:52→21:28)
[2021-02-05] MEDS: Ferrous Sulfate 325 MG TAB PO SCH ×2 (08:52→17:41)
[2021-02-05] MEDS: SODIUM CHLORIDE 0.9% FS SCH ×2 (08:53→15:26)
[2021-02-05] MEDS: Apixaban 5 MG TAB PO SCH ×2 (08:53→21:29)
[2021-02-05] MEDS: BUDESONIDE 0.5 MG/2 ML TOP SCH (08:53)
[2021-02-05] MEDS: Polyethylene Glycol 3350 17 GM Packet PO SCH ×2 (09:02→21:00)
[2021-02-05 10:47] VITALS: BMI 23.1
[2021-02-05] MEDS: Acetaminophen 500 MG TAB PO SCH (15:36)
[2021-02-05] MEDS ORDERED: Sodium Chloride Irrig Solution 250 ML BOT IR ONE (15:47)
[2021-02-05 21:00] LABS: SARS-CoV-2 PCR by NAA Not Detected (NotDetected)
[2021-02-05] MEDS: Melatonin 3 MG TAB PO SCH (21:28)
[2021-02-05] MEDS: Rosuvastatin 10 MG TAB PO SCH (21:28)
[2021-02-05] MEDS: metFORMIN 500 MG TAB PO SCH (21:29)
[2021-02-05] MEDS: Budesonide 0.5 MG/2 ML NEB FS SCH (21:36)
[2021-02-05] MEDS: Sodium Chloride Irrig Solution 250 ML IR SCH (21:36)
[2021-02-06] MEDS: Meropenem 1 GM in Sodium Chloride 0.9% 100 ML IVPB SCH ×3 (02:14→17:55)
[2021-02-06] MEDS: Acetaminophen 325 MG TAB PO PRN (02:20)
[2021-02-06] MEDS: Ferrous Sulfate 325 MG TAB PO SCH ×2 (07:58→16:56)
[2021-02-06] MEDS: Aspirin 81 mg Enteric Coated Tablet PO SCH (09:10)
[2021-02-06] MEDS: Acetaminophen 500 MG TAB PO SCH (09:10)
[2021-02-06] MEDS: Lisinopril 20 MG TAB PO SCH ×2 (09:11→20:27)
[2021-02-06] MEDS: Apixaban 5 MG TAB PO SCH ×2 (09:12→20:26)
[2021-02-06] MEDS: Budesonide 0.5 MG/2 ML NEB FS SCH ×2 (09:12→20:26)
[2021-02-06] MEDS: Polyethylene Glycol 3350 17 GM Packet PO SCH ×2 (09:14→20:30)
[2021-02-06] MEDS: Sodium Chloride Irrig Solution 250 ML IR SCH ×3 (09:20→20:34)
[2021-02-06] MEDS: metFORMIN 500 MG TAB PO SCH (20:29)
[2021-02-06] MEDS: Melatonin 3 MG TAB PO SCH (20:29)
[2021-02-06] MEDS: Rosuvastatin 10 MG TAB PO SCH (20:31)
[2021-02-07] MEDS: Meropenem 1 GM in Sodium Chloride 0.9% 100 ML IVPB SCH ×3 (02:36→17:29)
[2021-02-07] MEDS: Acetaminophen 325 MG TAB PO PRN (02:39)
[2021-02-07] MEDS: Acetaminophen 500 MG TAB PO SCH (08:22)
[2021-02-07] MEDS: Ferrous Sulfate 325 MG TAB PO SCH ×2 (08:22→17:29)
[2021-02-07] MEDS: Apixaban 5 MG TAB PO SCH ×2 (08:23→21:43)
[2021-02-07] MEDS: Budesonide 0.5 MG/2 ML NEB FS SCH ×2 (08:24→21:40)
[2021-02-07] MEDS: Aspirin 81 mg Enteric Coated Tablet PO SCH (08:24)
[2021-02-07] MEDS: Lisinopril 20 MG TAB PO SCH ×2 (08:24→21:42)
[2021-02-07] MEDS: Polyethylene Glycol 3350 17 GM Packet PO SCH ×2 (08:25→21:43)
[2021-02-07] MEDS: Sodium Chloride Irrig Solution 250 ML IR SCH ×3 (08:31→21:56)
[2021-02-07] MEDS: Melatonin 3 MG TAB PO SCH (21:41)
[2021-02-07] MEDS: Rosuvastatin 10 MG TAB PO SCH (21:42)
[2021-02-07] MEDS: metFORMIN 500 MG TAB PO SCH (21:42)
[2021-02-08] MEDS: Meropenem 1 GM in Sodium Chloride 0.9% 100 ML IVPB SCH ×3 (01:05→17:27)
[2021-02-08] MEDS: Acetaminophen 325 MG TAB PO PRN (01:06)
[2021-02-08] MEDS: Apixaban 5 MG TAB PO SCH ×2 (08:35→21:36)
[2021-02-08] MEDS: Acetaminophen 500 MG TAB PO SCH (08:36)
[2021-02-08] MEDS: Ferrous Sulfate 325 MG TAB PO SCH ×2 (08:37→17:27)
[2021-02-08] MEDS: Budesonide 0.5 MG/2 ML NEB FS SCH ×2 (08:37→21:36)
[2021-02-08] MEDS: Aspirin 81 mg Enteric Coated Tablet PO SCH (08:37)
[2021-02-08] MEDS: Lisinopril 20 MG TAB PO SCH ×2 (08:38→21:36)
[2021-02-08] MEDS: Sodium Chloride Irrig Solution 250 ML IR SCH ×3 (08:38→21:40)
[2021-02-08] MEDS: Polyethylene Glycol 3350 17 GM Packet PO SCH ×2 (08:41→21:36)
[2021-02-08] MEDS: Furosemide 20 MG TAB PO SCH (08:41)
[2021-02-08] MEDS: Melatonin 3 MG TAB PO SCH (21:36)
[2021-02-08] MEDS: metFORMIN 500 MG TAB PO SCH (21:36)
[2021-02-08] MEDS: Rosuvastatin 10 MG TAB PO SCH (21:36)
[2021-02-09] MEDS: Meropenem 1 GM in Sodium Chloride 0.9% 100 ML IVPB SCH ×4 (01:45→17:21)
[2021-02-09] MEDS: Acetaminophen 325 MG TAB PO PRN (02:26)
[2021-02-09 05:05] LABS: Hemoglobin 9.7 g/dL (12.0-16.0); Platelet Count 159 thou/uL (130-400)
[2021-02-09] MEDS: Ferrous Sulfate 325 MG TAB PO SCH ×2 (08:00→17:21)
[2021-02-09] MEDS: Sodium Chloride Irrig Solution 250 ML IR SCH ×3 (08:00→20:10)
[2021-02-09] MEDS: Acetaminophen 500 MG TAB PO SCH (08:01)
[2021-02-09] MEDS: Budesonide 0.5 MG/2 ML NEB FS SCH ×2 (08:01→20:07)
[2021-02-09] MEDS: Lisinopril 20 MG TAB PO SCH ×2 (08:01→20:07)
[2021-02-09] MEDS: Apixaban 5 MG TAB PO SCH ×2 (08:01→20:07)
[2021-02-09] MEDS: Aspirin 81 mg Enteric Coated Tablet PO SCH (08:01)
[2021-02-09] MEDS: Polyethylene Glycol 3350 17 GM Packet PO SCH ×2 (08:02→20:09)
[2021-02-09] MEDS: Melatonin 3 MG TAB PO SCH (20:08)
[2021-02-09] MEDS: metFORMIN 500 MG TAB PO SCH (20:08)
[2021-02-09] MEDS: Rosuvastatin 10 MG TAB PO SCH (20:09)
[2021-02-09] MEDS ORDERED: Meropenem 1 GM VIAL ONE ×2 (23:39→23:46)
[2021-02-10] MEDS: Acetaminophen 500 MG TAB PO SCH (09:06)
[2021-02-10] MEDS: Ferrous Sulfate 325 MG TAB PO SCH ×2 (09:06→16:59)
[2021-02-10] MEDS: Lisinopril 20 MG TAB PO SCH ×2 (09:10→20:23)
[2021-02-10] MEDS: Budesonide 0.5 MG/2 ML NEB FS SCH ×2 (09:11→20:23)
[2021-02-10] MEDS: Aspirin 81 mg Enteric Coated Tablet PO SCH (09:11)
[2021-02-10] MEDS: Apixaban 5 MG TAB PO SCH ×2 (09:11→20:23)
[2021-02-10] MEDS: Polyethylene Glycol 3350 17 GM Packet PO SCH ×2 (09:12→20:25)
[2021-02-10] MEDS: Sodium Chloride Irrig Solution 250 ML IR SCH ×3 (09:13→20:25)
[2021-02-10] MEDS: Meropenem 1 GM in Sodium Chloride 0.9% 100 ML IVPB SCH ×2 (10:31→17:00)
[2021-02-10] MEDS: Melatonin 3 MG TAB PO SCH (20:23)
[2021-02-10] MEDS: metFORMIN 500 MG TAB PO SCH (20:24)
[2021-02-10] MEDS: Rosuvastatin 10 MG TAB PO SCH (20:24)
[2021-02-11] MEDS: Meropenem 1 GM in Sodium Chloride 0.9% 100 ML IVPB SCH ×3 (01:54→17:48)
[2021-02-11] MEDS: Acetaminophen 325 MG TAB PO PRN (01:56)
[2021-02-11] MEDS: Sodium Chloride Irrig Solution 250 ML IR SCH ×3 (09:31→20:36)
[2021-02-11] MEDS: Budesonide 0.5 MG/2 ML NEB FS SCH ×3 (09:32→20:21)
[2021-02-11] MEDS: Apixaban 5 MG TAB PO SCH ×2 (09:33→20:21)
[2021-02-11] MEDS: Polyethylene Glycol 3350 17 GM Packet PO SCH ×2 (09:33→20:22)
[2021-02-11] MEDS: Ferrous Sulfate 325 MG TAB PO SCH ×2 (09:33→17:47)
[2021-02-11] MEDS: Lisinopril 20 MG TAB PO SCH ×2 (09:33→20:21)
[2021-02-11] MEDS: Acetaminophen 500 MG TAB PO SCH (09:34)
[2021-02-11] MEDS: Aspirin 81 mg Enteric Coated Tablet PO SCH (09:34)
[2021-02-11 18:15] LABS: SARS-CoV-2 PCR by NAA Not Detected (NotDetected)
[2021-02-11] MEDS: metFORMIN 500 MG TAB PO SCH (20:21)
[2021-02-11] MEDS: Rosuvastatin 10 MG TAB PO SCH (20:22)
[2021-02-11] MEDS: Melatonin 3 MG TAB PO SCH (22:00)
[2021-02-12] MEDS: Acetaminophen 325 MG TAB PO PRN ×2 (02:48→08:52)
[2021-02-12] MEDS: Meropenem 1 GM in Sodium Chloride 0.9% 100 ML IVPB SCH ×3 (02:48→17:55)
[2021-02-12 05:54] LABS: #Basophils 0.1 thou/uL (0.0-0.2); #Eosinphils 0.2 thou/uL (0.0-0.7); #Lymphocytes 1.5 thou/uL (1.20-3.40); #Monocytes 0.7 thou/uL (0.11-0.59); #Neutrophils 2.6 thou/uL (1.40-6.50); %Basophils 1.1 % (0.0-1.0); %Eosinophils 4.4 % (0.0-10.0); %Monocytes 14.4 % (0.0-10.0); %Neutrophils 51.1 % (42.0-75.0); Hemoglobin 9.7 g/dL (12.0-16.0); Mean Corpuscular HGB CONC 32.1 g/dL (32.0-36.0); Mean Corpuscular Hemoglobin 31.2 pg (27.0-31.0); Mean Corpuscular Volume 97.4 fL (78.0-98.0); Mean Platelet Volume 6.5 fL (7.4-10.4); Platelet Count 153 thou/uL (130-400); White Blood Cell (WBC) Count 5.1 thou/uL (4.8-10.8)
[2021-02-12 06:06] LABS: ALT (SGPT) 38 U/L (8-55); AST (SGOT) 33 U/L (5-34); Albumin 3.4 g/dL (3.4-4.8); Alkaline Phosphatase 63 U/L (40-110); Anion Gap 13 mmol/L (10-20); BUN (Urea Nitrogen) 22 mg/dL (9.8-20.1); Bilirubin, Total 0.6 mg/dL (0.2-1.2); Calc. Creatinine Clearance 40 mL/min (70-130); Calcium 10.3 mg/dL (7.8-10.44); Carbon Dioxide 24 mmol/L (23-31); Chloride 109 mmol/L (98-107); Globulin 2.3 g/dL (2.4-3.5); Glucose 116 mg/dL (83-110); Potassium 3.9 mmol/L (3.5-5.1); Protein, Total 5.7 g/dL (5.8-8.1); Sodium 142 mmol/L (136-145)
[2021-02-12] MEDS: Lisinopril 20 MG TAB PO SCH ×2 (08:51→21:45)
[2021-02-12] MEDS: Ferrous Sulfate 325 MG TAB PO SCH ×2 (08:51→17:06)
[2021-02-12] MEDS: Apixaban 5 MG TAB PO SCH ×2 (08:52→21:45)
[2021-02-12] MEDS: Aspirin 81 mg Enteric Coated Tablet PO SCH (08:52)
[2021-02-12] MEDS: Budesonide 0.5 MG/2 ML NEB FS SCH ×2 (08:53→21:44)
[2021-02-12] MEDS: Polyethylene Glycol 3350 17 GM Packet PO SCH ×2 (08:53→21:46)
[2021-02-12] MEDS: Sodium Chloride Irrig Solution 250 ML IR SCH ×3 (08:53→21:46)
[2021-02-12] MEDS: Acetaminophen 500 MG TAB PO SCH (08:54)
[2021-02-12] MEDS: metFORMIN 500 MG TAB PO SCH (21:45)
[2021-02-12] MEDS: Melatonin 3 MG TAB PO SCH (21:45)
[2021-02-12] MEDS: Rosuvastatin 10 MG TAB PO SCH (21:46)
[2021-02-13] MEDS: Meropenem 1 GM in Sodium Chloride 0.9% 100 ML IVPB SCH ×3 (02:18→17:35)
[2021-02-13] MEDS: Acetaminophen 325 MG TAB PO PRN (02:18)
[2021-02-13] MEDS: Sodium Chloride Irrig Solution 250 ML IR SCH ×3 (08:36→21:31)
[2021-02-13] MEDS: Lisinopril 20 MG TAB PO SCH ×2 (08:36→21:32)
[2021-02-13] MEDS: Acetaminophen 500 MG TAB PO SCH (08:37)
[2021-02-13] MEDS: Aspirin 81 mg Enteric Coated Tablet PO SCH (08:37)
[2021-02-13] MEDS: Ferrous Sulfate 325 MG TAB PO SCH ×2 (08:37→17:35)
[2021-02-13] MEDS: Apixaban 5 MG TAB PO SCH ×2 (08:37→21:30)
[2021-02-13] MEDS: Budesonide 0.5 MG/2 ML NEB FS SCH ×2 (08:38→21:30)
[2021-02-13] MEDS: Polyethylene Glycol 3350 17 GM Packet PO SCH ×2 (08:38→21:32)
[2021-02-13] MEDS: Rosuvastatin 10 MG TAB PO SCH (21:30)
[2021-02-13] MEDS: metFORMIN 500 MG TAB PO SCH (21:32)
[2021-02-13] MEDS: Melatonin 3 MG TAB PO SCH (21:32)
[2021-02-14] MEDS: Meropenem 1 GM in Sodium Chloride 0.9% 100 ML IVPB SCH ×3 (02:02→17:46)
[2021-02-14] MEDS: Acetaminophen 325 MG TAB PO PRN (02:11)
[2021-02-14] MEDS: Ferrous Sulfate 325 MG TAB PO SCH ×2 (08:12→17:45)
[2021-02-14] MEDS: Lisinopril 20 MG TAB PO SCH ×2 (08:13→20:25)
[2021-02-14] MEDS: Acetaminophen 500 MG TAB PO SCH (08:13)
[2021-02-14] MEDS: Aspirin 81 mg Enteric Coated Tablet PO SCH (08:13)
[2021-02-14] MEDS: Budesonide 0.5 MG/2 ML NEB FS SCH ×2 (08:14→20:26)
[2021-02-14] MEDS: Apixaban 5 MG TAB PO SCH ×2 (08:14→20:25)
[2021-02-14] MEDS: Polyethylene Glycol 3350 17 GM Packet PO SCH ×2 (08:15→20:29)
[2021-02-14] MEDS: Sodium Chloride Irrig Solution 250 ML IR SCH ×3 (08:15→20:30)
[2021-02-14] MEDS: Melatonin 3 MG TAB PO SCH (20:23)
[2021-02-14] MEDS: Rosuvastatin 10 MG TAB PO SCH (20:24)
[2021-02-14] MEDS: metFORMIN 500 MG TAB PO SCH (20:25)
[2021-02-15] MEDS: Meropenem 1 GM in Sodium Chloride 0.9% 100 ML IVPB SCH ×2 (02:28→09:56)
[2021-02-15] MEDS: Acetaminophen 325 MG TAB PO PRN (02:34)
[2021-02-15 08:13] VITALS: TEMP 97.8
[2021-02-15] MEDS: Apixaban 5 MG TAB PO SCH (09:59)
[2021-02-15] MEDS: Lisinopril 20 MG TAB PO SCH (10:00)
[2021-02-15] MEDS: Acetaminophen 500 MG TAB PO SCH (10:00)
[2021-02-15] MEDS: Ferrous Sulfate 325 MG TAB PO SCH (10:01)
[2021-02-15 10:02] VITALS: BP 119/57
[2021-02-15] MEDS: Budesonide 0.5 MG/2 ML NEB FS SCH (10:02)
[2021-02-15] MEDS: Sodium Chloride Irrig Solution 250 ML IR SCH (10:03)
[2021-02-15] MEDS: Polyethylene Glycol 3350 17 GM Packet PO SCH (10:07)
[2021-02-15] MEDS: Furosemide 20 MG TAB PO SCH (10:07)
== END 2021-02-15 14:30 | disposition home or self-care (01) | DRG 153 ==
LOC: MADMS 18:22
PROVIDERS: ADMIT Family Medicine; ATTEND Family Medicine
DX: J32.8 Other chronic sinusitis (principal); I50.32 Chronic diastolic (congestive) heart failure; I25.10 Atherosclerotic heart disease of native coronary artery without angina pectoris; D64.9 Anemia, unspecified; E11.9 Type 2 diabetes mellitus without complications; I35.0 Nonrheumatic aortic (valve) stenosis; E78.5 Hyperlipidemia, unspecified; I48.0 Paroxysmal atrial fibrillation; Z66 Do not resuscitate; K59.00 Constipation, unspecified; I11.0 Hypertensive heart disease with heart failure; Z95.1 Presence of aortocoronary bypass graft; Z88.2 Allergy status to sulfonamides; Z79.01 Long term (current) use of anticoagulants
CPT/HCPCS: 36415; 36416; 80048; 80053; 85014; 85018; 85025; 85049; 85652; 86140; J2185; J3490; J7626; U0003; U0005